=== PATIENT | female | born 1990 | race Caucasian/White ===

== ENCOUNTER 2018-03-15 15:23 | Outpatient (REF) | payer MEDICAID, SELFPAY ==
--- NOTE | 2018-03-15 14:30 | PAPFT_PTH ---
PATIENT: Brittany He LOC: [facility] U#:[id number] AGE/SX: 27/F ROOM: RE03/15/[address]: CARLA Dennis : 1990 BED: DIS: 03/15/2018 SPEC #: [id number] RECD: 03/15/18 17:43 STATUS: KALIN REQ #: [id number] ASHLI: 03/15/18 14:[address]: Cristiana Mason DEPT: [facility] Cytology RECD BY: Kiana Gutierres ENTERED: 03/15/18 17:44 SP TYPE: PAPFT YUKO DR: Tiago France MD Tissues: 1 - CX/ENDOCX FOR PAP SMEARS Procedures: PAP THIN PREP/UVM Screening Comments: [id number]
== END 2018-03-15 15:43 ==
LOC: LBN 15:23
PROVIDERS: PCP Family Medicine; Visit Provider Nurse Practitioner Family
DX: Z12.4 Encounter for screening for malignant neoplasm of cervix (principal)
CPT/HCPCS: 88142

== ENCOUNTER 2018-05-18 12:08 | Outpatient (REF) | payer MEDICAID, SELFPAY | END 2018-05-18 12:28 | LOC: NCHCN 12:08 | PROVIDERS: PCP Family Medicine; Visit Provider Family Medicine | DX: R30.0 Dysuria (principal) | CPT/HCPCS: 87077; 87086 ==

== ENCOUNTER 2018-05-19 21:43 | Emergency (ER) | payer MEDICAID, SELFPAY ==
[2018-05-19 21:51] VITALS: BP 148/70; PULSE 80; RESP 16; TEMP 36.7; O2SAT 98
--- NOTE | 2018-05-19 22:40 | ED.GENADUL_ITS ---
Discharge Plan Disposition Patient Disposition: HOME Condition: Good Discharge Details Chief Complaint: Abd Prob Clinical Impression: Pyelonephritis Primary Care Provider: Tiago France ED Provider: Jean Marie Moon Home Meds and New Rx's Prescriptions: New ciprofloxacin HCl 500 mg Tablet 500 mg PO BID Qty: 20 RF: 0 Continued fluticasone 50 mcg/actuation spray,suspension 2 spray NS DAILY PRN (Reason: allergy symptoms) Qty: 16 RF: 2 norgestimate-ethinyl estradiol [Tri-Sprintec (28)] 0.18/0.215/0.25 mg-35 mcg (28) tablet 1 tab PO DAILY Qty: 84 RF: 3 duloxetine 30 mg capsule,delayed release(DR/EC) 30 mg PO DAILY Qty: 30 RF: 2 Discontinued sulfamethoxazole-trimethoprim [Bactrim DS] 800-160 mg tablet 1 tab PO BID Qty: 6 RF: 0 Discharge Instructions Instructions: Kidney Infection (ED) Additional Instructions: Discontinue the Bactrim. Start taking ciprofloxacin. Use Tylenol or Motrin as needed for discomfort. Stay hydrated. Follow-up with primary care next week. Return to ED for worsening pain, vomiting, spiking fevers. Referrals: Tiago France. [Primary Care Provider] - Medical Decision Making Patient presenting with right lower quadrant and flank pain today. Being treated for UTI and urinary symptoms resolved. Is not febrile and looks well. She has a benign abdomen. She does have some mild right CVAT. She is describing colicky type pain. Concern for stone entertained. IV established and labs obtained. Toradol given for pain. CT scan ordered. test is negative. Clean catch urine x2 were contaminated. Ultimately straight cath was obtained. CT scan is negative. She has no evidence of hydronephrosis or calculi. Her appendix is normal. Adnexal organs appear normal. White count is normal. Kidney function is normal. Straight cath urine is positive for UTI despite treatment with Bactrim. Given the flank pain and mild CVAT presume pyelonephritis. We will go ahead and start her on ciprofloxacin as she is failed Bactrim. Urine culture should be available in the next couple of days. I did discuss side effects including Achilles tendon rupture with the patient. She will push fluids and use Tylenol or Motrin for pain. Follow-up with primary care next week. Return to ED for spiking fevers, worsening pain, vomiting. Lab Data Lab results reviewed: Yes I reviewed the patient's lab results. HPI General Mode of arrival: ambulatory . Date/Time Provider Initiated Documentation: 05/19/18 22:30 . Limitations to Documentation: no limitations . Information obtained by: patient . HPI Narrative: Patient presents to ED with right lower/mid quadrant pain. Patient seen by primary care this week for urinary tract symptoms including dysuria. She was placed on Bactrim for UTI. She at that time was not having back or flank pain or abdominal pain. She had no fevers or chills. She has had no nausea/vomiting. Her urinary symptoms have resolved. She has developed right lower quadrant/mid quadrant, right flank pain today. Describes it is sharp and colicky though not severe. Presents now for evaluation. Related Data Home Medications Medication Instructions Recorded Confirmed fluticasone 50 mcg/actuation nasal 2 spray NS DAILY PRN #16 gm 02/15/18 05/19/18 spray,suspension duloxetine 30 mg capsule,delayed 30 mg PO DAILY #30 cap 03/02/18 05/19/18 release norgestimate-ethinyl estradiol 1 tab PO DAILY #84 tab 03/15/18 05/19/18 0.18 mg/0.215mg/0.25mg-35 mcg(28)tablet ciprofloxacin HCl 500 mg PO BID #20 tab 05/20/18 Previous Rx's Medication Instructions Recorded fluticasone 50 mcg/actuation nasal 2 spray NS DAILY PRN #16 gm 02/15/18 spray,suspension duloxetine 30 mg capsule,delayed 30 mg PO DAILY #30 cap 03/02/18 release norgestimate-ethinyl estradiol 1 tab PO DAILY #84 tab 03/15/18 0.18 mg/0.215mg/0.25mg-35 mcg(28)tablet ciprofloxacin HCl 500 mg PO BID #20 tab 05/20/18 Allergies Allergy/AdvReac Type Severity Reaction Status Date / Time No Known Allergies Allergy Verified 03/15/18 13:54 General Stated Complaint: Abd Prob BUBBA: 3 Review of Systems Constitutional Denies chills, Denies fever(s), Denies headache(s), Denies malaise and Denies weakness Eyes Denies change in vision, Denies eye discharge, Denies irritation and Denies eye pain ENT Denies headache(s) and Denies neck pain Cardiovascular Denies chest pain, Denies pedal edema, Denies edema, Denies leg edema, Denies lightheadedness, Denies palpitations and Denies dyspnea Respiratory Denies cough and Denies dyspnea Gastrointestinal Reports abdominal pain, Denies diarrhea, Denies nausea and Denies vomiting Genitourinary Denies abnormal vaginal bleeding, Denies hematuria, Denies urinary frequency, Denies difficulty voiding, Denies dysuria, Denies pelvic pain, Reports flank pain, Denies urinary urgency and Denies vaginal discharge Musculoskeletal Denies back pain, Denies myalgias, Denies arthralgias, Denies joint swelling, Denies neck pain and Denies numbness Integumentary/Breasts Denies erythema and Denies rash Neurologic Denies confusion, Denies headache(s), Denies numbness and Denies weakness Psychiatric Denies confusion Endocrine Denies palpitations [facility] Medical History Depressive disorder (Chronic) Tobacco use disorder (Acute 05/02/14) Subarachnoid hemorrhage following injury (Acute 03/11/14) ETOH abuse (Acute 03/13/14) Contraception (Acute 01/19/17) Anxiety (Chronic 10/29/15) Cerebral hemorrhage secondary to trauma History of depression Family History Brother Essential hypertension Social History household members: significant other and other details: 5 current occupation: [employer] Smoking/Tobacco Use Status: Current every day how long ago did patient quit smoking: Light tobacco smoker alcohol intake: current alcohol intake frequency: holidays/special occasions only substance use type: does not use seatbelt use: always helmet use: Yes helmet use: always firearms in home: No History History 2 Para Hx # Term Pregnancies 1 Multiple births Hx # Pregnancies Ectopic pregnancies AB induced Hx Number of Living Children AB spontaneous Exam Const General: cooperative, comfortable and no acute distress Orientation: alert and oriented x3 HENMT Head: normocephalic and atraumatic Mouth: moist mucous membranes Eyes Conjunctivae: conjunctivae normal Pupils: PERRL EOM: EOM intact bilaterally Neck Neck: full ROM, no lymphadenopathy, trachea midline and supple Resp Effort & Inspection: normal respiratory effort Auscultation: clear to auscultation bilaterally Cardio Rate: regular rate Rhythm: regular rhythm Heart Sounds: S1 normal and S2 normal Pulses: normal peripheral pulses GI Inspection: non-distended Palpation: soft, not firm, no guarding and nontender Back/Spine/Pelvis Back: CVA tenderness (right) Skin General skin exam: no erythema Rashes: no rashes Trauma: no lacerations or abrasions Other: warm and dry Neuro General: alert, oriented x3, no focal motor deficits and CN's II-XI intact bilaterally Cognition: normal cognition Speech: speech normal Sensory Exam: no sensory deficits noted Extrem General: normal to inspection, full ROM and no clubbing, cyanosis or edema Psych Appearance: grossly normal Mental Status: mental status grossly normal Affect: normal affect Attitude: cooperative Course Vital Signs Temperature 98.1 F 05/19/18 21:51 Pulse 80 05/19/18 21:51 Respiratory Rate 16 05/19/18 21:51 Blood Pressure 148/70 H 05/19/18 21:51 Pulse Oximetry 98 05/19/18 21:51 Temperature 98.1 F 05/19/18 21:51 Temperature Source Skin 05/19/18 21:51 Pulse 80 05/19/18 21:51 Respiratory Rate 16 05/19/18 21:51 Respiratory Effort 05/19/18 22:14 Blood Pressure 148/70 H 05/19/18 21:51 Blood Pressure Position Sitting 05/19/18 21:51 Pulse Oximetry 98 05/19/18 21:51 Oxygen Delivery Method Room Air 05/19/18 21:51 Oxygen Flow Rate 0 05/19/18 21:51 Pain Level 10 05/19/18 21:51 Lab/Test Results Lab/Test Results: POC- Test(urine) Negative
[2018-05-19] MEDS: Ketorolac 30 MG/ML VIAL IVP (22:51)
[2018-05-19 22:53] LABS: Bilirubin Negative (Negative); Blood Trace-intact (Negative); Clarity Sl Cloudy; Glucose Negative (Negative); Ketones Negative (Negative); Leukocyte Esterase Trace (Negative); Nitrite Negative (Negative); Specific Gravity 1.025 (1.005-1.025)
[2018-05-19 22:57] LABS: Abs Immature Grans 0.01 k/cumm (0.0-0.09); Absolute Basophil Count 0.02 k/cumm (0.0-0.2); Absolute Eosinophil Count 0.05 k/cumm (0.0-0.7); Absolute Lymphocyte Count 2.49 k/cumm (1.2-3.4); Absolute Monocyte Count 0.73 k/cumm (0.11-0.7); Absolute Neutrophil Count 6.19 k/cumm (1.2-6.7); Basophils % 0.2; Eosinophils % 0.5; HCT 40.1 % (36.0-46.0); HGB 13.4 g/dL (12.0-15.5); Immature Grans % 0.1; Lymphocytes % 26.2; Mean Corp. HGB Concentration 33.4 g/dL (32.0-36.0); Mean Corpuscular Hemoglobin 30.7 pg (27.0-33.0); Mean Corpuscular Volume 91.8 fL (80-95); Mean Platelet Volume 11.5 fL (8.0-11.0); Monocytes % 7.7; Neutrophils % 65.3; Platelet Count 216 x1000/uL (130-400); RBC 4.37 m/cumm (4.00-5.20); White Blood Cell Count 9.49 k/cumm (4.4-10.8)
[2018-05-19 22:59] LABS: WBC 20-50 HPF (0-5)
[2018-05-19 23:00] LABS: Bacteria Moderate HPF (Negative); C & S Indicated? No/Sq. Contamination; Casts Negative LPF (Negative); Crystals Negative HPF (Negative); Epithelial Cells Many HPF (Negative); Mucus Negative (Negative)
[2018-05-19 23:01] LABS: Anion Gap 9.7 mmol/L (3-11); BUN 12 mg/dL (7-18); CO2 27.3 mmol/L (21.0-32.0); CREATININE 0.64 mg/dL (0.55-1.02); Calcium 8.7 mg/dL (8.5-10.1); Chloride 98 mmol/L (98-107); Glucose 91 mg/dL (70-100); Potassium 3.7 mmol/L (3.5-5.1); Sodium 135 mmol/L (136-145)
--- NOTE | 2018-05-19 23:50 | DI.CT_ITS ---
SYMPTOM/DIAGNOSIS: RIGHT FLANK PAIN. RENAL COLIC CT: The noncontrast enhanced examination was conducted according to the usual protocol. The lung bases are unremarkable. The liver is normal. There is no evidence of cholelithiasis or biliary dilatation. The pancreas and spleen are normal. The adrenals are normal. There is a nonobstructing left nephrolithiasis. The right kidney is entirely unremarkable. There is no evidence of right or left ureterolithiasis or ureterectasis. The images suggest no evidence of a renal mass on this noncontrast enhanced study. As noted above, no ureteral calculi are demonstrated There is no evidence of bowel obstruction or localized bowel abnormality or inflammatory change. Scattered feces is noted throughout the colon. Evaluation of the pelvis reveals a normal appendix in the right lower quadrant. The bladder is unremarkable. The uterus is unremarkable. There is no evidence of an adnexal mass. There is no free fluid in this patient's pelvis. There is no inguinal adenopathy. There is no pelvic adenopathy. The bowel loops within the pelvis are unremarkable. SUMMARY: A nonobstructing calculus is identified, it should be on the left kidney. There is no evidence of right or left upper tract obstruction. There are no ureteral calculi or evidence of ureterolithiasis. The appendix is normal.
--- NOTE | 2018-05-20 00:32 | DI.VRAD_ITS ---
EXAM: CT Abdomen and Pelvis Without Contrast EXAM DATE/TIME: 05/19/2018 10:42 PM CLINICAL HISTORY: 27 years old, female; Pain; Other: Ruq and r flank; Patient HX: PT has been on antibiotics for a urinary infection but now ruq and r flank pain TECHNIQUE: Axial computed tomography images of the abdomen and pelvis without contrast. All CT scans at this facility use at least one of these dose optimization techniques: automated exposure control; mA and/or kV adjustment per patient size (includes targeted exams where dose is matched to clinical indication); or iterative reconstruction. Coronal and sagittal reformatted images were created and reviewed. COMPARISON: OB US 1ST TRIMESTER TRANSABD*P 09/05/2014 6:47 PM FINDINGS: The lung bases are clear. The visualized bony structures are unremarkable. There is no liver mass. There is no intrahepatic biliary dilatation. No gallstones are seen within the gallbladder. The pancreas is unremarkable. The spleen is unremarkable. There is no adrenal mass. There is no hydronephrosis. There is a small calculus in the midpole of the left kidney not causing obstruction. No calculi are seen within the right kidney. There is no perinephric stranding. There is no renal mass. The ureters are normal in caliber. No calculi are seen along the course of the ureters. The aorta is normal in caliber. The IVC is normal in caliber. There is no retroperitoneal adenopathy. There is no mesenteric adenopathy. The stomach is unremarkable. The small bowel loops in the upper abdomen are nondistended with no bowel wall thickening. Feces is seen throughout the colon. There is no thickening of the wall of the ascending, transverse or descending colons. Within the pelvis: A normal appendix is seen within the right lower quadrant. The bladder is nondistended. The uterus is unremarkable. There are no adnexal masses. There is no free fluid within the pelvis. There is no inguinal adenopathy. There is no pelvic adenopathy. The bowel loops within the pelvis are unremarkable. IMPRESSION: 1. No hydronephrosis. No obstructing calculi on the right. Please note the lack of IV contrast limits evaluation of the renal parenchyma for pyelonephritis. 2. Normal appendix. Dictated and Authenticated by: Mazin Ventura MD. Ordering:DEUCE Aj MD
[2018-05-20 00:50] LABS: Bilirubin Negative (Negative); Blood Trace-lysed (Negative); Clarity Sl Cloudy; Glucose Negative (Negative); Ketones Negative (Negative); Leukocyte Esterase Small (Negative); Nitrite Negative (Negative); Specific Gravity 1.015 (1.005-1.025); Urobilinogen 0.2 EU/dL (Up TO 0.2); pH 6.5 (5-8)
[2018-05-20 00:56] LABS: WBC 20-50 HPF (0-5)
[2018-05-20 00:57] LABS: Bacteria Few HPF (Negative); C & S Indicated? No/Sq. Contamination; Casts Negative LPF (Negative); Crystals Negative HPF (Negative); Epithelial Cells Many HPF (Negative); Mucus Negative (Negative); RBC 0-2 (0-2)
[2018-05-20 02:01] LABS: Bilirubin Negative (Negative); Blood Trace-lysed (Negative); Clarity Sl Cloudy; Glucose Negative (Negative); Ketones Negative (Negative); Leukocyte Esterase Small (Negative); Nitrite Negative (Negative); Specific Gravity 1.025 (1.005-1.025)
[2018-05-20 02:09] LABS: Bacteria Few HPF (Negative); C & S Indicated? Yes; Casts Negative LPF (Negative); Crystals Negative HPF (Negative); Epithelial Cells Few HPF (Negative); Mucus Moderate (Negative); RBC 0-2 (0-2); WBC 20-50 HPF (0-5)
[2018-05-20] MEDS: Ciprofloxacin 500 MG TAB PO (02:37)
[2018-05-20 02:43] VITALS: BP 130/73; PULSE 64; RESP 16; O2SAT 99
== END 2018-05-20 02:43 | disposition home or self-care (01) ==
PROVIDERS: Emergency Provider Emergency Medicine; PCP Family Medicine
DX: N10 Acute pyelonephritis (principal)
CPT/HCPCS: 36415; 51701; 80048; 81025; 96374; 99284; 74176; 81003; 81015; 85025; 87086; 99285; J1885

== ENCOUNTER 2019-12-19 11:51 | Outpatient (REF) | payer MEDICAID, SELFPAY ==
--- NOTE | 2019-12-19 11:30 | PAPFT_PTH ---
PATIENT: Brittany He LOC: [facility] U#:[id number] AGE/SX: 29/F ROOM: RE12/19/[address]: CARLA Dennis : 1990 BED: DIS: 12/19/2019 SPEC #: [id number] RECD: 12/19/19 12:40 STATUS: KALIN REQ #: [id number] ASHLI: 12/19/19 11:[address]: Cristiana Mason DEPT: [facility] Cytology RECD BY: Kiana Gutierres ENTERED: 12/19/19 12:40 SP TYPE: PAPFT OTHR DR: Tiago France MD Tissues: 1 - CX/ENDOCX FOR PAP SMEARS Procedures: PAP THIN PREP/UVM Screening HPV DNA PROBE Comments: [id number]
[2019-12-21 18:35] LABS: Chlamydia Result Negative (Negative); GC Result Negative (Negative)
== END 2019-12-19 12:11 ==
LOC: LBN 11:51
PROVIDERS: PCP Family Medicine; Visit Provider Nurse Practitioner Family
DX: Z11.3 Encounter for screening for infections with a predominantly sexual mode of transmission (principal); Z12.4 Encounter for screening for malignant neoplasm of cervix; Z11.59 Encounter for screening for other viral diseases
CPT/HCPCS: 87491; 87591; 88142; 87624

== ENCOUNTER 2020-03-05 12:19 | Outpatient (CLI) | payer MEDICAID, SELFPAY ==
--- NOTE | 2020-03-05 13:16 | DI.RAD_ITS ---
EXAM: XR RIBS RT W PA LAT CHEST CLINICAL HISTORY: right rib pain r/t fall R07.81 PLEURODYNIA TECHNIQUE: 2D digital imaging was performed. COMPARISON: CR CHEST 2 VIEWS PA,LAT from 03/11/2014 FINDINGS: The cardiac and mediastinal contours have a normal appearance. The lungs are well inflated and clear . No infiltrate, effusion or pneumothorax is seen. No spine or rib fracture is identified. IMPRESSION: Negative chest x-ray.
== END 2020-03-05 12:39 ==
PROVIDERS: PCP Family Medicine; Visit Provider Nurse Practitioner Family
DX: R07.81 Pleurodynia (principal)
CPT/HCPCS: 71046; 71100

== ENCOUNTER 2020-09-29 10:51 | Emergency (ER) | payer MEDICAID, SELFPAY ==
[2020-09-29 10:58] VITALS: BP 138/81; PULSE 94; RESP 18; TEMP 37.3; O2SAT 97
--- NOTE | 2020-09-29 11:14 | W.ED.GENAD ---
Discharge Plan Disposition Patient Disposition: HOME Condition: Good Discharge Details Clinical Impression: Acute pain of left knee Primary Care Provider: Tiago France ED Provider: Kiana Garcia Home Meds and New Rx's Prescriptions: No Action fluticasone propionate 50 mcg/actuation spray,suspension 2 spray NS DAILY PRN (Reason: allergy symptoms) Qty: 16 RF: 2 norgestimate-ethinyl estradiol [Tri-Sprintec (28)] 0.18/0.215/0.25 mg-35 mcg (28) tablet 1 tab PO DAILY Qty: 84 RF: 3 Discharge Instructions Instructions: Knee Pain (ED) Additional Instructions: Please follow-up with the primary care physician and orthopedics with persistent pain You may need a repeat x-ray in 1 week should you have persistent or worsening pain Weightbearing as tolerated You may use a [id number] knee brace as needed for support Ibuprofen and Tylenol for pain control, 600 mg of ibuprofen, you may take 650 mg of Tylenol, do not take more than 4 g of Tylenol in a day You may take ibuprofen 600 mg every 8 hours with food You may also use [id number] Voltaren gel as needed for discomfort Stand Alone Forms: Work Release Medical Decision Making Patient requested crutches, these are supplied An [id number] knee brace recommended Orthopedic or PCP recheck in 1 week recommended Ibuprofen and Tylenol for pain control Return precautions discussed and patient understanding Ambulatory with steady gait at time of discharge home Differential Diagnosis Differential Diagnosis: Fracture, strain, contusion, abrasion HPI General Mode of arrival: ambulatory. Date/Time Provider Initiated Documentation: 09/29/20 11:09. Limitations to Documentation: no limitations. Information obtained by: patient. HPI Narrative: This 29-year-old female presents with report of left knee pain. She states that she lost her footing and fell down 4 steps on the porch. She landed on her foot but twisted her knee when she did so. She denies any additional injuries. She denies any head injury, abdominal pain, back pain, strength or sensation changes. The pain is exacerbated predominantly with flexion and walking. She denies any chance of . Related Data Home Medications Medication Instructions Recorded Confirmed fluticasone propionate 50 2 spray NS DAILY PRN #16 gm 18 09/29/20 mcg/actuation nasal spray,suspension norgestimate-ethinyl estradiol 1 tab PO DAILY #84 tab 12/19/19 09/29/20 0.18 mg/0.215mg/0.25mg-35 mcg(28)tablet Previous Rx's Medication Instructions Recorded fluticasone propionate 50 2 spray NS DAILY PRN #16 gm 02/15/18 mcg/actuation nasal spray,suspension norgestimate-ethinyl estradiol 1 tab PO DAILY #84 tab 12/19/19 0.18 mg/0.215mg/0.25mg-35 mcg(28)tablet Allergies Allergy/AdvReac Type Severity Reaction Status Date / Time No Known Allergies Allergy Verified 09/29/20 11:01 General Stated Complaint: Orthopedic BUBBA: 4 Review of Systems Narrative: Review of systems negative x7 aside from indicated in HPI [facility] Medical History (Updated 09/29/20 @ 11:28 by DAVID Napoles) Anxiety (10/29/15) 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 Contraception (01/19/17) Depressive disorder ETOH abuse (03/13/14) History of depression Subarachnoid hemorrhage following injury (03/11/14) Tobacco use disorder (05/02/14) Family History Brother Essential hypertension Social History Smoking/Tobacco Use Status: Current-Occasional Tobacco Type: cigarettes Smoking risk assessment performed?: Yes Alcohol Intake: current Alcohol Intake frequency: holidays/special occasions only Drug use: Never Substance use type: does not use Household members: significant other and other Details: 5 current occupation: [employer] What type of physical activity do you participate in: none Seatbelt use: always Helmet use: Yes Helmet use: always Firearms in home: No Do you feel safe at home: Yes Do you feel safe in your relationship?: Yes History History 2 Para Hx # Term Pregnancies 1 Multiple births Hx # Pregnancies Ectopic pregnancies AB induced Hx Number of Living Children AB spontaneous Exam Const General: cooperative and comfortable HENMT Other: No visible sign of trauma Neck Other: No midline tenderness Extrem Left lower extremity: knee Other: No joint laxity, tenderness laterally, no overlying erythema pain with 90 degrees flexion Distal pulses intact Course Vital Signs Vital signs: Vital Signs Temperature 37.3 C 09/29/20 10:58 Pulse 94 H 09/29/20 10:58 Respiratory Rate 18 09/29/20 10:58 Blood Pressure 138/81 09/29/20 10:58 Pulse Oximetry 97 09/29/20 10:58 Temperature 37.3 C 09/29/20 10:58 Temperature Source Oral 09/29/20 10:58 Pulse 94 H 09/29/20 10:58 Respiratory Rate 18 09/29/20 10:58 Respiratory Effort Non-Labored 09/29/20 11:02 Blood Pressure 138/81 09/29/20 10:58 Blood Pressure Position Sitting 09/29/20 10:58 Pulse Oximetry 97 09/29/20 10:58 Oxygen Delivery Method Room Air 09/29/20 10:58 Oxygen Flow Rate 0 09/29/20 10:58 Pain Level 10 09/29/20 10:58
--- NOTE | 2020-09-29 12:00 | DI.RAD_ITS ---
Exam(s) XR KNEE LT 3V AP,LAT,JYOTI EXAM: XR KNEE LT 3V AP,LAT,JYOTI CLINICAL HISTORY: . TECHNIQUE: 2D digital imaging was performed. COMPARISON: No exams were available for comparison FINDINGS: There is no evidence of fracture or joint effusion. Bone density normal. No osseous lesions. No os teophytes. No degenerative changes. IMPRESSION: No significant radiograph findings in the left knee. DATA REPOSITORY: RADIATION DOSE DELIVERED:
[2020-09-29 12:01] VITALS: BP 139/94; PULSE 91; RESP 16; TEMP 36.6; O2SAT 97
--- NOTE | 2020-09-29 12:44 | DI.VRAD_ITS ---
PROCEDURE INFORMATION: Exam: XR Left Knee Exam date and time: 09/29/2020 11:15 AM Age: 29 years old Clinical indication: Pain; Other: Left knee twisting injury; Patient HX: Fall TECHNIQUE: Imaging protocol: XR Left knee. Views: 3 views. COMPARISON: No relevant prior studies available. FINDINGS: Bones/joints: Osseous structures of the knee normal. No fracture. No joint effusion. Soft tissues unremarkable. Soft tissues: See Bones/joints finding. IMPRESSION: Normal knee. Dictated and Authenticated by: Brady Aguilar MD. Ordering:CLAYTON Bruno MD
== END 2020-09-29 13:10 | disposition home or self-care (01) ==
PROVIDERS: Emergency Provider Physician Assistant; PCP Family Medicine
DX: S89.82XA Other specified injuries of left lower leg, initial encounter (principal); W18.43XA Slipping, tripping and stumbling without falling due to stepping from one level to another, initial encounter
CPT/HCPCS: 73562; 81025; 99283; 99282

== ENCOUNTER 2021-03-07 10:49 | Outpatient (REF) | payer MEDICAID, SELFPAY ==
[2021-03-10 15:23] LABS: Chlamydia Result Negative (Negative); GC Result Negative (Negative)
== END 2021-03-07 10:50 | disposition home or self-care (01) ==
LOC: LBN 10:49
PROVIDERS: PCP Family Medicine; Visit Provider Nurse Practitioner Family
DX: Z11.3 Encounter for screening for infections with a predominantly sexual mode of transmission (principal)
CPT/HCPCS: 87491; 87591

== ENCOUNTER 2021-05-14 08:35 | Emergency (ER) | payer MEDICAID, SELFPAY ==
--- NOTE | 2021-05-14 09:15 | DI.US_ITS ---
Exam(s) US ABDOMEN LIMITED EXAM: US ABDOMEN LIMITED CLINICAL HISTORY: epigastric and Ruq pain TECHNIQUE: Ultrasound abdomen performed using standard protocol. COMPARISON: CT CT renal colic wo from 05/19/[address] renal colic wo from 05/19/2018 FINDINGS: PANCREAS: Normal where visualized. LIVER: Normal. Hepatopedal flow in the Portal Vein. The liver measures 12.8 cm long. GALLBLADDER: No evidence of cholelithiasis. No evidence of wall thickening. No pericholecystic fluid identified. BILIARY SYSTEM: Common bile duct measures < 7 mm. No intrahepatic biliary ductal dilation. RAMÍREZ'S SIGN: Negative. RIGHT KIDNEY: Kidney is normal in size. No evidence of renal calculi. No evidence of hydronephrosis. No renal mass or cyst identified. ASCITES: None seen. IMPRESSION: Normal sonographic appearance of the upper abdomen. DATA REPOSITORY:
--- NOTE | 2021-05-14 09:55 | DI.RAD_ITS ---
Exam(s) XR CHEST 2V PA LATERAL EXAM: XR CHEST 2V PA LATERAL CLINICAL HISTORY: ruq and luq pain TECHNIQUE: 2D digital imaging was performed of the chest. Two images were obtained. PA and lateral views were obtained. COMPARISON: CR XR RIBS RT W PA LAT CHEST from 03/05/2020 CR XR RIBS RT W PA LAT CHEST from 03/05/2020 FINDINGS: MEDIASTINUM: Normal. HEART: Normal. PULMONARY VASCULATURE: Normal. LUNGS: Clear. PLEURAL SPACE: No pleural effusion or pneumothorax. BONE:Within normal limits for the patient's age. OTHER FINDINGS:Normal. IMPRESSION: No acute pulmonary findings. DATA REPOSITORY: RADIATION DOSE DELIVERED:
[2021-05-14 10:00] VITALS: BP 121/77; PULSE 75; TEMP 36.1; O2SAT 98
[2021-05-14 10:05] LABS: Bilirubin Negative (Negative); Blood Negative (Negative); Clarity Clear (Clear); Glucose Negative (Negative); Ketones Negative (Negative); Leukocyte Esterase Moderate (Negative); Nitrite Negative (Negative)
[2021-05-14 10:09] VITALS: PULSE 71; RESP 14; TEMP 36.3; O2SAT 97
[2021-05-14 10:14] LABS: Bacteria Few HPF (Negative); C & S Indicated? No/Sq. Contamination; Casts Negative LPF (Negative); Crystals Negative HPF (Negative); Epithelial Cells Moderate HPF (Negative); Mucus Trace (Negative); RBC Negative HPF (0-2)
[2021-05-14] MEDS: ACETAMINOPHEN 1,000 MG/100 ML BTL 400 MG IVPB (10:20)
[2021-05-14 10:30] LABS: HGB 13.7 g/dL (11.2-15.7); MCH 30.1 pg (27.0-33.0); MCHC 33.4 % (32.0-36.0); MCV 90.1 fL (80-95); MPV 11.7 fL (8.0-11.0); Nucleated RBC 0 %; Platelet Count 111 10^3/uL (130-400); RBC 4.55 10^6/uL (3.93-5.22); RDW 12.3 % (11.7-14.6); RDW-SD 41.1 fL; WBC 5.97 10^3/uL (4.4-10.8)
[2021-05-14] MEDS: Normal Saline 1,000 ML 1000 ML IV (10:34)
[2021-05-14 10:43] LABS: ALT 29 U/L (14-59); AST 34 U/L (15-37); Albumin 3.5 g/dL (3.4-5.0); Alkaline Phosphatase 92 U/L (46-116); Anion Gap 8.2 mmol/L (3-11); BUN 6 mg/dL (7-18); Bilirubin, Total 0.3 mg/dL (0.2-1.0); CO2 27.8 mmol/L (21.0-32.0); CREATININE 0.5 mg/dL (0.55-1.02); Calcium 8.4 mg/dL (8.5-10.1); Chloride 100 mmol/L (98-107); Glucose 95 mg/dL (74-106); Lipase 56 U/L (73-393); Potassium 3.9 mmol/L (3.5-5.1); Sodium 136 mmol/L (136-145); Total Protein 7.7 g/dL (6.4-8.2)
[2021-05-14 10:55] LABS: Absolute Eosinophil Count 0.06 10^3/uL (0.0-0.7); Absolute Lymphocyte Count 3.22 10^3/uL (1.2-3.4); Absolute Monocyte Count 0.36 10^3/uL (0.1-0.8); Absolute Neutrophil Count 2.33 10^3/uL (1.2-6.7); Atypical Lymphocytes % 15; Bands % 2; Diff Comment Manual Differential; RBC Morphology Normal
[2021-05-14] MEDS: FAMOTIDINE 20 MG/50 ML BAG 200 MG IVPB (11:10)
--- NOTE | 2021-05-14 11:26 | ED.GENADUL_ITS ---
Discharge Plan Disposition Patient Disposition: HOME Condition: Stable Discharge Details Clinical Impression: Gastritis Primary Care Provider: Tiago France ED Provider: Kiana Garcia Home Meds and New Rx's Prescriptions: New sucralfate [Carafate] 1 gram tablet 1 g PO BID Qty: 60 RF: 0 famotidine [Pepcid] 20 mg tablet 20 mg PO DAILY Qty: 14 RF: 0 omeprazole magnesium [Prilosec OTC] 20 mg tablet,delayed release (DR/EC) 20 mg PO DAILY Qty: 30 RF: 0 ondansetron HCl [Zofran] 4 mg tablet 4 mg PO Q8H PRNQty: 7 RF: 0 Continued fluticasone propionate 50 mcg/actuation spray,suspension 2 spray NS DAILY PRN (Reason: allergy symptoms) Qty: 16 RF: 2 norgestimate-ethinyl estradiol [Tri-Sprintec (28)] 0.18/0.215/0.25 mg-35 mcg (28) tablet 1 tab PO DAILY Qty: 84 RF: 3 Discharge Instructions Instructions: Gastritis (ED) Additional Instructions: Carafate,, and Prilosec daily Zofran as needed for nausea and vomiting Follow-up with your doctor within the next week for reassessment and return earlier should you have new or worsening complaints Recommend low-fat and residue diet, stay away from fatty food, coffee, tomato, oranges, and anything that irritates your stomach Stand Alone Forms: Work Release Referrals: Tiago France MD [Primary Care Provider] - Medical Decision Making Dog lab including test negative, ultrasound does not show acute abnormality, chest x-ray without acute abnormality Patient had no improvement with IV Tylenol, however after GI cocktail and Pepcid she had marked improvement in her symptoms She was initiated on Pepcid, Carafate, and Prilosec for possible gastritis She will need close outpatient follow-up with her primary care physician within the next 2 to 3 days Return precautions discussed and patient expressed understanding No indication for CT imaging based on clinical exam at this time We discussed outpatient endoscopy, however medication trial is appropriate at this time Medical Records Medical records reviewed: Yes I reviewed the patient's medical records. Lab Data Lab results reviewed: Yes I reviewed the patient's lab results. HPI General Mode of arrival: ambulatory . Date/Time Provider Initiated Documentation: 05/14/21 09:11 . Limitations to Documentation: no limitations . Information obtained by: patient . HPI Narrative: This 30-year-old female presents with epigastric pain. She states that she started with nausea and vomiting followed by abdominal pain on Wednesday. She denies history of similar symptoms in the past. She denies any chest pain or shortness of breath. Sexually active and monogamous, denies any vaginal discharge.she denies any dizziness or weakness. She describes the pain as a burning sensation. She denies chance of . She denies any urinary complaints. She denies any blood in vomitus or diarrhea. Related Data Home Medications Medication Instructions Recorded Confirmed fluticasone propionate 50 2 spray NS DAILY PRN #16 gm 02/15/18 05/14/21 mcg/actuation nasal spray,suspension norgestimate-ethinyl estradiol 1 tab PO DAILY #84 tab 03/07/21 05/14/21 0.18 mg/0.215mg/0.25mg-35 mcg(28)tablet famotidine [Pepcid] 20 mg PO DAILY #14 tab 05/14/21 omeprazole magnesium [Prilosec OTC] 20 mg PO DAILY #30 tab 05/14/21 ondansetron HCl [Zofran] 4 mg PO Q8H PRN #7 tab 05/14/21 sucralfate [Carafate] 1 g PO BID #60 tab 05/14/21 Previous Rx's Medication Instructions Recorded fluticasone propionate 50 2 spray NS DAILY PRN #16 gm 02/15/18 mcg/actuation nasal spray,suspension norgestimate-ethinyl estradiol 1 tab PO DAILY #84 tab 03/07/21 0.18 mg/0.215mg/0.25mg-35 mcg(28)tablet famotidine [Pepcid] 20 mg PO DAILY #14 tab 05/14/21 omeprazole magnesium [Prilosec OTC] 20 mg PO DAILY #30 tab 05/14/21 ondansetron HCl [Zofran] 4 mg PO Q8H PRN #7 tab 05/14/21 sucralfate [Carafate] 1 g PO BID #60 tab 05/14/21 Allergies Allergy/AdvReac Type Severity Reaction Status Date / Time No Known Allergies Allergy Verified 05/14/21 10:12 General Stated Complaint: Abd Prob BUBBA: 3 Review of Systems All systems reviewed & are unremarkable except as noted in HPI and below PFSH All Active Problems (Updated 05/14/21 @ 11:28 by DAVID Napoles) Gastritis (Acute) Acute pain of left knee (Acute) Pyelonephritis (Acute ~04/2018) Depressive disorder (Chronic) Tobacco use disorder (Acute 05/02/14) Subarachnoid hemorrhage following injury (Acute 03/11/14) ETOH abuse (Acute 03/13/14) Contraception (Acute 01/19/17) Anxiety (Chronic 10/29/15) Medical History (Updated 05/14/21 @ 11:28 by DAVID Napoles) 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 History of depression Family History Brother Essential hypertension Social History (Updated 10/28/20 @ 14:55 by Jeni Strong) Smoking/Tobacco Use Status: Current-Occasional Tobacco Type: cigarettes Smoking risk assessment performed?: Yes Alcohol Intake: current Alcohol Intake frequency: holidays/special occasions only Drug use: Never Substance use type: does not use Household members: children Housing: apartment current occupation: [employer] Pets and animals: Yes Pets and animals: cat(s) Sexually active: Yes What is your relationship status?: How often do you talk on the phone with friends or family?: three or more times per week Do you belong to any clubs or organized social groups?: no Panel score (0-1 are the most socially isolated patients): 1 What type of physical activity do you participate in: walking Duration: 30-45 minutes/day Frequency: 3-4 times per week Seatbelt use: always Helmet use: Yes Helmet use: always Firearms in home: No Do you feel safe at home: Yes Do you feel safe in your relationship?: Yes History History 2 Para Hx # Term Pregnancies 1 Multiple births Hx # Pregnancies Ectopic pregnancies AB induced Hx Number of Living Children AB spontaneous Exam Const General: cooperative, comfortable and no acute distress HENMT Other: Moist mucous membranes Eyes Sclera: sclerae normal Resp Effort & Inspection: normal respiratory effort Cardio Rate: regular rate Rhythm: regular rhythm GI Inspection: normal to inspection Other: Tenderness to palpation of the epigastrium, no CVA tenderness, no rebound or guarding Skin General skin exam: no rashes or lesions noted Neuro General: patient alert and patient oriented x3 Extrem Other: Distal pulses intact, no peripheral edema Psych Appearance: grossly normal Course Vital Signs Vital signs: Vital Signs Temperature 36.1 C L 05/14/21 10:00 Pulse 75 05/14/21 10:00 Blood Pressure 121/77 05/14/21 10:00 Pulse Oximetry 98 05/14/21 10:00 Temperature 36.3 C L 05/14/21 10:09 Temperature Source Skin 05/14/21 10:09 Pulse 71 05/14/21 10:09 Respiratory Rate 14 05/14/21 10:09 Respiratory Effort Non-Labored 05/14/21 10:13 Blood Pressure 121/77 05/14/21 10:00 Blood Pressure Position Sitting 05/14/21 10:09 Pulse Oximetry 97 05/14/21 10:09 Oxygen Delivery Method Room Air 05/14/21 10:09 Oxygen Flow Rate 0 05/14/21 10:09 Pain Level 10 05/14/21 10:09 Lab/Test Results Lab/Test Results: Laboratory Tests Range/Units 05/14/21 05/14/21 05/14/21 09:25 10:20 10:20 WBC (4.4-10.8) 10^3/uL 5.97 RBC (3.93-5.22) 10^6/uL 4.55 Hgb (11.2-15.7) g/dL 13.7 Hct (36.0-46.0) % 41.0 MCV (80-95) fL 90.1 MCH (27.0-33.0) pg 30.1 MCHC (32.0-36.0) % 33.4 RDW (11.7-14.6) % 12.3 Plt Count (130-400) 10^3/uL 111 L MPV (8.0-11.0) fL 11.7 H Immature Gran % 0.0 Neutrophils % 37.0 Band Neutrophils % 2 Lymphocytes % 39.0 Atypical Lymphs % 15 Monocytes % 6.0 Eosinophils % 1.0 Basophils % 0.0 Nucleated RBC % % 0 Absolute Neutrophils (1.2-6.7) 10^3/uL 2.33 Absolute Lymphocytes (1.2-3.4) 10^3/uL 3.22 Absolute Monocytes (0.1-0.8) 10^3/uL 0.36 Absolute Eosinophils (0.0-0.7) 10^3/uL 0.06 Absolute Basophils (0.0-0.2) 10^3/uL 0.00 RBC Morphology Normal Sodium (136-145) mmol/L 136 Potassium (3.5-5.1) mmol/L 3.9 Chloride (98-107) mmol/L 100 Carbon Dioxide (21.0-32.0) mmol/L 27.8 Anion Gap (3-11) mmol/L 8.2 BUN (7-18) mg/dL 6 L Creatinine (0.55-1.02) mg/dL 0.5 L Estimated GFR/1.73 m2 (mL/min/1.73m2) >= 60.00 Glucose (74-106) mg/dL 95 Calcium (8.5-10.1) mg/dL 8.4 L Total Bilirubin (0.2-1.0) mg/dL 0.3 AST (15-37) U/L 34 ALT (14-59) U/L 29 Alkaline Phosphatase (46-116) U/L 92 Total Protein (6.4-8.2) g/dL 7.7 Albumin (3.4-5.0) g/dL 3.5 Lipase (73-393) U/L 56 Urine Color (Yellow) Yellow Urine Clarity (Clear) Clear Urine pH (5-8) 7.0 Ur Specific [place] (1.005-1.025) 1.020 Urine Protein (Negative) mg/dL Negative Urine Ketones (Negative) mg/dL Negative Urine Blood (Negative) Negative Urine Nitrite (Negative) Negative Urine Bilirubin (Negative) Negative Urine Urobilinogen (Up TO 0.2) EU/dL 1.0 H Ur Leukocyte Esterase (Negative) Moderate H Urine RBC (0-2) HPF Negative Urine WBC (0-5) HPF 5-10 Ur Epithelial Cells (Negative) HPF Moderate Urine Crystals (Negative) HPF Negative Urine Bacteria (Negative) HPF Few Urine Casts (Negative) LPF Negative Urine Mucus (Negative) Trace Ur Culture Indicated? No/Sq. Contamination Urine Glucose (Negative) mg/dL Negative POC- Test(urine) Negative PAWSS Have you Been Recently Intoxicated or Drunk Within the Last 30 days?: No Have you Ever Experienced Previous Episodes of Alcohol Withdrawal?: No Have you ever Experienced Withdrawal Seizures?: No Have you ever Experienced Delirium Tremens(DT)s?: No Have you ever undergone Alcohol Rehabilitation Treatment (i.e, inpt ot outpatient treatment programs)?: No Have you ever Experienced Blackouts?: No Have you ever Combined Alcohol with other Downers within the last 90 days?: No Have you ever Combined Alcohol with any other Substance of Abuse during the last 90 days?: No Positive Blood Alcohol level on Presentation? [PCS.BAL]: No Evidence of Increased Autonomic Activity (i.e. HR>120, tremor, sweating, agitation, nausea)?: No Result: 0
== END 2021-05-14 11:37 | disposition home or self-care (01) ==
PROVIDERS: Emergency Provider Physician Assistant; PCP Family Medicine
DX: K29.00 Acute gastritis without bleeding (principal); R11.2 Nausea with vomiting, unspecified; R10.13 Epigastric pain
CPT/HCPCS: 36415; 80053; 81025; 83690; 96361; 96365; 96367; 99284; 71046; 76705; 81003; 81015; 85025; J0131

== ENCOUNTER 2021-09-15 12:20 | Emergency (ER) | payer MEDICAID, SELFPAY ==
[2021-09-15 12:38] VITALS: BP 128/83; PULSE 69; RESP 16; TEMP 36.8; O2SAT 100
--- NOTE | 2021-09-15 12:52 | ED.GENADUL_ITS ---
Discharge Plan Disposition Patient Disposition: HOME Condition: Stable Discharge Details Clinical Impression: Laceration Primary Care Provider: Tiago France ED Provider: Rome Meza Home Meds and New Rx's Prescriptions: Continued fluticasone propionate 50 mcg/actuation spray,suspension 2 spray NS DAILY PRN (Reason: allergy symptoms) Qty: 16 2RF omeprazole magnesium [Prilosec OTC] 20 mg tablet,delayed release (DR/EC) 20 mg PO DAILY PRN0RF norgestimate-ethinyl estradiol [Tri-Sprintec (28)] 0.18/0.215/0.25 mg-35 mcg (28) tablet See Rx Instructions .ROUTE .COMPLEX Qty: 84 1RF Dose Instruction: TAKE 1 TABLET BY MOUTH DAILY Rx Instructions: TAKE 1 TABLET BY MOUTH DAILY Discharge Instructions Instructions: Laceration (ED) Additional Instructions: follow up in 7-10 days for evaluation for suture removal and sooner if you have spreading redness, severe pain or yellow/white discharge from the wound Medical Decision Making 30 yo female was at work cutting food with a knife when she cut her left index finger. She denies falling or loc. HAs a 2cm lac on the radial surface of the proximal index finger that runs vertically. Has intact sensation, full rom and normal cap refill, and the woud does not cross a joint line. Laceration is deep enough that it will require sutures. wound closed without incident or complications, she will return in 7-10 days for suture removal Differential Diagnosis Differential Diagnosis: laceration, abrasion HPI General Mode of arrival: ambulatory . Date/Time Provider Initiated Documentation: 09/15/21 12:29 . Limitations to Documentation: no limitations . Information obtained by: patient . History of Present Illness 30 year old F presents to the emergency department with the chief complaint of finger laceration, described as mild, Patient started experiencing this hour(s) (1) and it has been constant. improves with No relieving factors improve symptom(s), No exacerbating factors reported . Patient notes no other symptoms.. Patient did receive the following treatments prior to arrival, none Related Data Home Medications Medication Instructions Recorded Confirmed fluticasone propionate 50 2 spray NS DAILY PRN #16 gm 02/15/18 09/15/21 mcg/actuation nasal spray,suspension omeprazole magnesium 20 mg 20 mg PO DAILY PRN tab 05/20/21 09/15/21 tablet,delayed release (Prilosec OTC) norgestimate-ethinyl estradiol See Rx Instructions .ROUTE 09/09/21 09/15/21 0.18 mg/0.215mg/0.25mg-35 .COMPLEX #84 tab mcg(28)tablet (Tri-Sprintec (28)) Previous Rx's Medication Instructions Recorded fluticasone propionate 50 2 spray NS DAILY PRN #16 gm 02/15/18 mcg/actuation nasal spray,suspension norgestimate-ethinyl estradiol See Rx Instructions .ROUTE 09/09/21 0.18 mg/0.215mg/0.25mg-35 .COMPLEX #84 tab mcg(28)tablet (Tri-Sprintec (28)) Allergies Allergy/AdvReac Type Severity Reaction Status Date / Time No Known Allergies Allergy Verified 09/15/21 12:41 General Stated Complaint: Laceration BUBBA: 4 Review of Systems All systems reviewed & are unremarkable except as noted in HPI and below Constitutional Constitutional: Denies chills, Denies fever(s) and Denies weakness Cardiovascular Cardiovascular: Denies chest pain and Denies dyspnea Respiratory Respiratory: Denies dyspnea Gastrointestinal Gastrointestinal: Denies abdominal pain and Denies vomiting Genitourinary Genitourinary: Denies dysuria Musculoskeletal Musculoskeletal: Denies joint swelling Integumentary/Breasts Skin/Breast: Denies rash Neurologic Neurologic: Denies weakness PFSH All Active Problems (Updated 09/15/21 @ 13:21 by Rome Meza MD) Laceration (Acute) Acute pain of left knee (Acute) Pyelonephritis (Acute ~04/2018) Depressive disorder (Chronic) Tobacco use disorder (Acute 05/02/14) Subarachnoid hemorrhage following injury (Acute 03/11/14) ETOH abuse (Acute 03/13/14) Contraception (Acute 01/19/17) Anxiety (Chronic 10/29/15) Medical History (Updated 09/15/21 @ 13:21 by Rome Meza MD) 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 History of depression Family History Brother Essential hypertension Social History (Updated 10/28/20 @ 14:55 by Jeni Strong) Smoking/Tobacco Use Status: Current-Occasional Tobacco Type: cigarettes Smoking risk assessment performed?: Yes Alcohol Intake: current Alcohol Intake frequency: holidays/special occasions only Drug use: Never Substance use type: does not use Household members: children Housing: apartment current occupation: [employer] Pets and animals: Yes Pets and animals: cat(s) Sexually active: Yes What is your relationship status?: How often do you talk on the phone with friends or family?: three or more times per week Do you belong to any clubs or organized social groups?: no Panel score (0-1 are the most socially isolated patients): 1 What type of physical activity do you participate in: walking Duration: 30-45 minutes/day Frequency: 3-4 times per week Seatbelt use: always Helmet use: Yes Helmet use: always Firearms in home: No Do you feel safe at home: Yes Do you feel safe in your relationship?: Yes History History 2 Para Hx # Term Pregnancies 1 Multiple births Hx # Pregnancies Ectopic pregnancies AB induced Hx Number of Living Children AB spontaneous Exam Const General: no acute distress Orientation: alert HENMT Head: normal to inspection Ears: external ears normal General nose exam: external nose normal Mouth: moist mucous membranes Eyes General: appearance normal, both eyes and all related structures Neck Neck: normal visual inspection Resp Effort & Inspection: normal respiratory effort and able to speak in complete sentences Cardio Rate: regular rate Skin General skin exam: no rashes or lesions noted Neuro General: patient alert and patient oriented x3 Extrem General: full ROM and capillary refill normal Psych Mental Status: mental status grossly normal Course Vital Signs Vital signs: Vital Signs Temperature 36.8 C 09/15/21 12:38 Pulse 69 09/15/21 12:38 Respiratory Rate 16 09/15/21 12:38 Blood Pressure 128/83 09/15/21 12:38 Pulse Oximetry 100 09/15/21 12:38 Temperature 36.8 C 09/15/21 12:38 Temperature Source Temporal Artery Scan 09/15/21 12:38 Pulse 69 09/15/21 12:38 Respiratory Rate 16 09/15/21 12:38 Respiratory Effort 09/15/21 12:38 Blood Pressure 128/83 09/15/21 12:38 Blood Pressure Position Sitting 09/15/21 12:38 Pulse Oximetry 100 09/15/21 12:38 Oxygen Delivery Method Room Air 09/15/21 12:38 Oxygen Flow Rate 0 09/15/21 12:38 Pain Level 5 09/15/21 12:38 Procedures Laceration Laceration 1: Site: hand Side (If applicable): right Size (cm): 2 Description: linear Depth: simple, single layer Local Anesthetic: Lidocaine 2% Amount of anesthesia used (mL): 4 Pre-repair: wound explored Skin layer closed with: nylon Size (cm): 5-0 Number of sutures: 3 Technique: simple, interrupted
[2021-09-15] MEDS: Tetanus & Diphtheria Tox,ADULT 0.5 ML VIAL IM (13:26)
[2021-09-15] MEDS: Lidocaine 2% Multi-Dose 50 ML VIAL (13:35)
== END 2021-09-15 13:41 | disposition home or self-care (01) ==
PROVIDERS: Emergency Provider Emergency Medicine; PCP Family Medicine
DX: S61.211A Laceration without foreign body of left index finger without damage to nail, initial encounter (principal); W26.0XXA Contact with knife, initial encounter; Y99.0 Civilian activity done for income or pay
CPT/HCPCS: 12001; 90471

== ENCOUNTER 2023-02-22 08:21 | Emergency (ER) | payer MEDICAID, SELFPAY ==
[2023-02-22] VITALS (10 sets, daily range): BP systolic 127–142; BP diastolic 80–107; PULSE 54–72; RESP 12–21; TEMP 36.8; O2SAT 98–100
--- NOTE | 2023-02-22 08:30 | RT.EKG_ITS ---
APPROVED REPORT Exam: Resting ECG Reason for Exam: chest pain Patient Location: E HR:61 bpm ECG Measurements Heart Rate 61 AXIS RI 131 P 60 QRSd 98 QRS 22 QT 429 T 14 QTc 432 Conclusion Sinus rhythm... V-rate 60- [address]. [address] segment or T wave abnormalities to suggest occlusive MT
--- NOTE | 2023-02-22 08:36 | W.ED.GENAD ---
Discharge Plan Disposition Patient Disposition: Home Discharge Details Chief Complaint: Trauma Clinical Impression: Chest pain of unknown etiology Primary Care Provider: Tiago France ED Provider: Trish Brown Home Meds and New Rx's Prescriptions: No Action fluticasone propionate 50 mcg/actuation spray,suspension 2 spray NS DAILY PRN (Reason: allergy symptoms) Qty: 16 2RF omeprazole magnesium [Prilosec OTC] 20 mg tablet,delayed release (DR/EC) 20 mg PO DAILY PRN norgestimate-ethinyl estradiol [Tri-Sprintec (28)] 0.18/0.215/0.25 mg-35 mcg (28) tablet See Rx Instructions .ROUTE .COMPLEX Qty: 84 3RF Dose Instruction: TAKE 1 TABLET BY MOUTH DAILY Rx Instructions: TAKE 1 TABLET BY MOUTH DAILY Discharge Instructions Instructions: Chest Pain (ED) Additional Instructions: Take tylenol and ibuprofen over the counter as needed for pain; follow the directions on the bottle. Call your primary care doctor today to schedule an appointment within one week to followup on your visit here. Return to the emergency department for new or worsening symptoms including new/different/worse chest pain, difficultly breathing, or if you have any other concerns. Stand Alone Forms: Work Release Medical Decision Making 32yo previously healthy female presenting with left sided chest pain constant and worsening since Wednesday; tripped and fell three days ago walking down a hill, landed on her left side. Vital signs reassuring, left anterior chest wall/breast tender to palpation with no echymosis. Low suspicion for acute cardiac event or pulmonary embolism however given pain is worsening and has pleuritic component will get labs. EKG NSR, appropriate intervals, no St segment or T wave abnormaliteis to suggiest occlusive PA. CXR independently reviewed, no focal pneumonia or pneumothorax on my view, agree with radiolgoy read below. Labs reviewed as below, CBC & CMP reassuring, dimer negative (would not further workup PE), troponin negative in the setting of days of constant chest pain. Suspect likely MSK etiology; given tylenol and toradol. On reassessment she remains well appearing with reassuring vital signs. HEART score 0. Discharged home; discharge instructions including return precautions were reviewed with patient who verbalized understanding. All questions were answered and they are in full agreement with the plan. Imaging Data Radiologic Study: Imaging: X-Ray Radiologist's impression: IMPRESSION: No acute pulmonary findings. Lab Data Lab results reviewed: Yes I reviewed the patient's lab results. HPI General Mode of arrival: ambulatory. Date/Time Provider Initiated Documentation: 02/22/23 08:22. Limitations to Documentation: no limitations. Information obtained by: patient. HPI Narrative: 32yo previously healthy female presenting with left sided chest pain constant and worsening since Wednesday. Tripped and fell three days ago walking down a hill, landed on her left side. Since then has had dull left anterior chest pain, worse with deep inspiration. Minimal relief with ibuprofen at home. Has not had any pain medication since yesterday. Also reports bruising to her left leg. No shortness of breath, palpitations, presyncope, or syncope. She is otherwise in her usual state of health with no fevers, chills, rash, nausea, vomiting, abdominal pain, numbness, tinlging, weakness, LE edema, or other concerns. Related Data Home Medications Medication Instructions Recorded Confirmed fluticasone propionate 50 2 spray NS DAILY PRN allergy 02/15/18 02/22/23 mcg/actuation nasal symptoms #16 grams spray,suspension omeprazole magnesium 20 mg 20 mg PO DAILY PRN 05/20/21 02/22/23 tablet,delayed release (Prilosec OTC) norgestimate-ethinyl estradiol See Rx Instructions .Route 05/26/22 02/22/23 0.18 mg/0.215mg/0.25mg-35 .COMPLEX #84 tabs mcg(28)tablet (Tri-Sprintec (28)) Previous Rx's Medication Instructions Recorded fluticasone propionate 50 2 spray NS DAILY PRN allergy 02/15/18 mcg/actuation nasal symptoms #16 grams spray,suspension norgestimate-ethinyl estradiol See Rx Instructions .Route 05/26/22 0.18 mg/0.215mg/0.25mg-35 .COMPLEX #84 tabs mcg(28)tablet (Tri-Sprintec (28)) Allergies Allergy/AdvReac Type Severity Reaction Status Date / Time No Known Allergies Allergy Verified 02/22/23 08:27 General Stated Complaint: Trauma BUBBA: 3 Review of Systems Narrative: see HPI PFSH All Active Problems (Updated 02/22/23 @ 09:54 by Trish Brown MD) Chest pain of unknown etiology (Acute) Acute pain of left knee (Chronic) Depressive disorder (Chronic) Tobacco use disorder (Acute 05/02/14) Contraception (Acute 01/19/17) Anxiety (Chronic 10/29/15) Medical History (Updated 02/22/23 @ 09:54 by Trish Brown MD) 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 History of depression Family History (Updated 11/11/21 @ 09:48 by Sebastian Lopez) Brother Essential hypertension Spina bifida aperta of lumbosacral spine Mother Fibromyalgia Maternal Grandfather Lupus Pancreatic cancer Social History (Updated 11/12/21 @ 12:05 by Kyleigh Banerjee) Smoking/Tobacco Use Status: Current-Occasional Tobacco Type: cigarettes Tobacco: How many years used: 10 Quit status: considering quitting Second Hand Exposure: Yes Smoking risk assessment performed?: Yes Alcohol Intake: current Alcohol Intake frequency: holidays/special occasions only Drug use: Never Substance use type: does not use Caregiver/Support person: Yes Household members: children Housing: apartment Communication Needs: None Do you need help understanding health information?: Never current occupation: [employer] Pets and animals: Yes Pets and animals: cat(s) Sexually active: Yes What is your relationship status?: How often do you talk on the phone with friends or family?: three or more times per week How often do you get together with friends or relatives?: three or more times per week Do you belong to any clubs or organized social groups?: no Panel score (0-1 are the most socially isolated patients): 1 What type of physical activity do you participate in: walking Duration: 15-30 minutes/day Frequency: 3-4 times per week Seatbelt use: always Helmet use: Yes Helmet use: always Firearms in home: No Do you feel safe at home: Yes Do you feel safe in your relationship?: Yes History History 2 Para Hx # Term Pregnancies 1 Multiple births Hx # Pregnancies Ectopic pregnancies AB induced Hx Number of Living Children AB spontaneous Exam Narrative Exam Narrative: General: Alert, well appearing, well nourished, in no acute distress. Head: Normocephalic, atraumatic Neck: Trachea midline, Neck supple. ENT: MMM. No oropharygeal lesions or exudate. Cardiac: RRR, no murmurs appreciated. Left anterior chest wall/breast tender to palpation, no overlying echymosis or ertyhema. Resp: No respiratory distress. CTAB. Abd: Soft, non-distended, nontender : No suprapubic tenderness. No CVA tenderness. Extremities: No deformities. No peripheral edema. Echymosis left roldan. Neurologic: GCS 15. Moves all extremities freely against gravity Course Vital Signs Vital signs: Vital Signs Temperature 36.8 C 02/22/23 08:24 Pulse 70 02/22/23 08:24 Respiratory Rate 20 02/22/23 08:24 Blood Pressure 127/99 H 02/22/23 08:24 Pulse Oximetry 99 02/22/23 08:24 Temperature 36.8 C 02/22/23 08:24 Temperature Source Oral 02/22/23 08:24 Pulse 70 02/22/23 08:24 Respiratory Rate 20 02/22/23 08:24 Respiratory Effort Short of Breath 02/22/23 08:28 Blood Pressure 127/99 H 02/22/23 08:24 Blood Pressure Position Sitting 02/22/23 08:24 Pulse Oximetry 99 02/22/23 08:24 Oxygen Delivery Method Room Air 02/22/23 08:24 Oxygen Flow Rate 0 02/22/23 08:24 Pain Level 10 02/22/23 08:24
[2023-02-22] MEDS: Acetaminophen 500 MG TAB 1000 MG PO (08:54)
[2023-02-22 08:57] LABS: Abs Immature Grans 0.02 10^3/uL (0.0-0.06); Absolute Basophil Count 0.03 10^3/uL (0.0-0.2); Absolute Eosinophil Count 0.06 10^3/uL (0.0-0.7); Absolute Lymphocyte Count 2.49 10^3/uL (1.2-3.4); Absolute Monocyte Count 0.67 10^3/uL (0.1-0.8); Absolute Neutrophil Count 4.41 10^3/uL (1.2-6.7); Basophils % 0.4; Eosinophils % 0.8; HCT 42.1 % (36.0-46.0); HGB 13.8 g/dL (11.2-15.7); Immature Grans % 0.3; Lymphocytes % 32.4; MCH 30.6 pg (27.0-33.0); MCHC 32.8 % (32.0-36.0); MCV 93 fL (80-95); MPV 10.5 fL (8.0-11.0); Monocytes % 8.7; Neutrophils % 57.4; Platelet Count 217 10^3/uL (130-400); RBC 4.51 10^6/uL (3.93-5.22); RDW 12.3 % (11.7-14.6); RDW-SD 42.7 fL; WBC 7.68 10^3/uL (4.4-10.8)
--- NOTE | 2023-02-22 09:01 | DI.RAD_ITS ---
Exam(s) XR CHEST 2V PA LATERAL EXAM: XR CHEST 2V PA LATERAL CLINICAL HISTORY: fall, left chest wall pain. TECHNIQUE: 2D digital imaging was performed. COMPARISON: CR XR CHEST 2V PA LATERAL from 05/14/2021 FINDINGS: 2 views: Heart size is normal. The mediastinum is not widened. Lungs are clear. No infiltrates nor pleural effusions. IMPRESSION: No acute pulmonary findings. DATA REPOSITORY: RADIATION DOSE DELIVERED:
[2023-02-22 09:29] LABS: D-Dimer 221 ng/mlFEU (<500)
[2023-02-22 09:45] LABS: ALT 24 U/L (14-59); AST 19 U/L (15-37); Albumin 3.4 g/dL (3.4-5.0); Alkaline Phosphatase 78 U/L (46-116); Anion Gap 8.7 mmol/L (3-11); BUN 8 mg/dL (7-18); Bilirubin, Total 0.3 mg/dL (0.2-1.0); CO2 27.3 mmol/L (21.0-32.0); CREATININE 0.7 mg/dL (0.55-1.02); Calcium 8.9 mg/dL (8.5-10.1); Chloride 104 mmol/L (98-107); Estimated GFR 116.31 (mL/min/1.73m2); Glucose 84 mg/dL (74-106); Potassium 3.5 mmol/L (3.5-5.1); Sodium 140 mmol/L (136-145); Total Protein 7.4 g/dL (6.4-8.2)
[2023-02-22 09:46] LABS: HCG Quant, Pregnancy < 1 mIU/mL (1-3)
[2023-02-22 09:47] LABS: Troponin I < 50 ng/L (<or=60)
[2023-02-22] MEDS: Ketorolac 15 MG/ML VIAL IM (09:57)
== END 2023-02-22 10:04 | disposition home or self-care (01) ==
PROVIDERS: Emergency Provider Student in an Organized Health Care Education/Training Program; PCP Family Medicine
DX: R07.9 Chest pain, unspecified (principal); W01.10XA Fall on same level from slipping, tripping and stumbling with subsequent striking against unspecified object, initial encounter
CPT/HCPCS: 36415; 80053; 81025; 93005; 96372; 99283; 71046; 84484; 84702; 85025; 85379; 93010; J1885

== ENCOUNTER 2023-08-18 10:21 | Emergency (ER) | payer MEDICAID, SELFPAY ==
[2023-08-18 10:35] VITALS: BP 127/69; PULSE 72; RESP 15; TEMP 36.3; O2SAT 98
--- NOTE | 2023-08-18 14:30 | DI.RAD_ITS ---
Exam(s) XR THUMB LT EXAM: XR THUMB LT CLINICAL HISTORY: Swelling. TECHNIQUE: 2D digital imaging was performed. Three views. COMPARISON: None. FINDINGS: BONES: No acute fracture is present. No bony destructive lesion is seen. JOINTS: No dislocation present. SOFT TISSUE: Normal. IMPRESSION: No evidence of acute fracture, dislocation, or subluxation. DATA REPOSITORY: RADIATION DOSE DELIVERED:
--- NOTE | 2023-08-18 14:43 | ED.GENADUL_ITS ---
Discharge Plan Disposition Patient Disposition: Home Condition: Stable Discharge Details Clinical Impression: Cellulitis of left thumb Primary Care Provider: Tiago France ED Provider: Franca Palmer Home Meds and New Rx's Prescriptions: New cephalexin 500 mg tablet 500 mg PO BID 7 Days Qty: 14 0RF No Action fluticasone propionate 50 mcg/actuation spray,suspension 2 spray NS DAILY PRN (Reason: allergy symptoms) Qty: 16 2RF omeprazole magnesium [Prilosec OTC] 20 mg tablet,delayed release (DR/EC) 20 mg PO DAILY PRN norgestimate-ethinyl estradiol [Tri-Sprintec (28)] 0.18/0.215/0.25 mg-35 mcg (28) tablet See Rx Instructions .ROUTE .COMPLEX Qty: 84 3RF Dose Instruction: TAKE 1 TABLET BY MOUTH DAILY Rx Instructions: TAKE 1 TABLET BY MOUTH DAILY Discharge Instructions Instructions: Cellulitis (ED) Additional Instructions: Take the antibiotics twice daily as directed with yogurt or probiotic. No evidence of abnormality on the X-ray. I am suspecting a infection. Please take Tylenol or Ibuprofen with food every 4-6 hours as needed for pain and swelling. Follow up with primary care provider in 3-5 days. Return to ED sooner if any worsening or concerns. Stand Alone Forms: Work Release Referrals: Tiago France MD [Primary Care Provider] - 5 days Discharge Data Discharge Date/Time-TO BE ENTERED AT DEPARTURE: 08/18/23 15:42 HPI General Mode of arrival: ambulatory . Date/Time Provider Initiated Documentation: 08/18/23 10:42 . Limitations to Documentation: no limitations . Information obtained by: patient, RN notes reviewed and old records reviewed . HPI Narrative: 32 year old female presents to the ER with cc left thumbn redness, swelling, and erythema since yesterday. She reports that she has no known injury. She is having difficulty flexing her thumb. No tenderness around the nailbed or evidence of paronychia or felon. She she does have some erythema around the joint space. She does have a history of depression. There is no open lesions noted. Related Data Home Medications Medication Instructions Recorded Confirmed fluticasone propionate 50 2 spray NS DAILY PRN allergy 02/15/18 02/22/23 mcg/actuation nasal symptoms #16 grams spray,suspension omeprazole magnesium 20 mg 20 mg PO DAILY PRN 05/20/21 02/22/23 tablet,delayed release (Prilosec OTC) norgestimate-ethinyl estradiol See Rx Instructions .Route 03/11/23 0.18 mg/0.215mg/0.25mg-35 .COMPLEX #84 tabs mcg(28)tablet (Tri-Sprintec (28)) cephalexin 500 mg tablet 500 mg PO BID 7 days #14 tabs 08/18/23 Previous Rx's Medication Instructions Recorded fluticasone propionate 50 2 spray NS DAILY PRN allergy 02/15/18 mcg/actuation nasal symptoms #16 grams spray,suspension norgestimate-ethinyl estradiol See Rx Instructions .Route 03/11/23 0.18 mg/0.215mg/0.25mg-35 .COMPLEX #84 tabs mcg(28)tablet (Tri-Sprintec (28)) cephalexin 500 mg tablet 500 mg PO BID 7 days #14 tabs 08/18/23 Allergies Allergy/AdvReac Type Severity Reaction Status Date / Time No Known Allergies Allergy Verified 02/22/23 08:27 General Stated Complaint: RashLesion BUBBA: 4 Review of Systems All systems reviewed & are unremarkable except as noted in HPI and below Musculoskeletal Musculoskeletal: Reports as per HPI, Reports arthralgias, Reports joint swelling and Reports limited range of motion Integumentary/Breasts Skin/Breast: Reports erythema, Reports skin pain and Reports skin swelling Exam Extrem Left upper extremity: hand Details: tenderness Location: of the thumb and swelling Location: of the thumb Location: at the MCP joint and on the dorsal aspect Hand/finger images: 2 1. swelling around MCP joint, decreased range of motion Course Vital Signs Vital signs: Vital Signs Temperature 36.3 C L 08/18/23 10:35 Pulse 72 08/18/23 10:35 Respiratory Rate 15 08/18/23 10:35 Blood Pressure 127/69 08/18/23 10:35 Pulse Oximetry 98 08/18/23 10:35 Temperature 36.3 C L 08/18/23 10:35 Temperature Source Temporal Artery Scan 08/18/23 10:35 Pulse 72 08/18/23 10:35 Respiratory Rate 15 08/18/23 10:35 Blood Pressure 127/69 08/18/23 10:35 Blood Pressure Position Sitting 08/18/23 10:35 Pulse Oximetry 98 08/18/23 10:35 Oxygen Delivery Method Room Air 08/18/23 10:35 Oxygen Flow Rate 0 08/18/23 10:35 Pain Level 7 08/18/23 10:35 Medical Decision Making 32 year old female presents to the ER with cc left thumbn redness, swelling, and erythema since yesterday. She reports that she has no known injury. She is having difficulty flexing her thumb. No tenderness around the nailbed or evidence of paronychia or felon. She she does have some erythema around the joint space. She does have a history of depression. There is no open lesions noted. X-ray ordered. Differential includes, cellulitis, occult fracture, injury, sprain, arthritis. X-ray within normal limits. Will give cephalexin and ibuprofen. Imaging Data Radiologic Study: Imaging: X-Ray Radiologist's impression: EXAM: XR THUMB LT CLINICAL HISTORY: Swelling. TECHNIQUE: 2D digital imaging was performed. Three views. COMPARISON: None. FINDINGS: BONES: No acute fracture is present. No bony destructive lesion is seen. JOINTS: No dislocation present. SOFT TISSUE: Normal. IMPRESSION: No evidence of acute fracture, dislocation, or subluxation. Quality:SDOH Health Related Social Needs: 2 No Data to Display PFSH All Active Problems (Updated 08/18/23 @ 15:27 by Franca Palmer NP) Cellulitis of left thumb (Acute) Acute pain of left knee (Chronic) Depressive disorder (Chronic) Tobacco use disorder (Acute 05/02/14) Contraception (Acute 01/19/17) Anxiety (Chronic 10/29/15) Medical History History of depression 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 Family History Brother Essential hypertension Spina bifida aperta of lumbosacral spine Mother Fibromyalgia Maternal Grandfather Lupus Pancreatic cancer Social History Smoking/Tobacco Use Status: Current-Occasional Tobacco Type: cigarettes Tobacco: How many years used: 10 Quit status: considering quitting Second Hand Exposure: Yes Smoking risk assessment performed?: Yes Alcohol Intake: current Alcohol Intake frequency: holidays/special occasions only Drug use: Never Substance use type: does not use Caregiver/Support person: Yes Household members: children Housing: apartment Communication Needs: None Do you need help understanding health information?: Never current occupation: [employer] Pets and animals: Yes Pets and animals: cat(s) Sexually active: Yes What is your relationship status?: How often do you talk on the phone with friends or family?: three or more times per week How often do you get together with friends or relatives?: three or more times per week Do you belong to any clubs or organized social groups?: no Panel score (0-1 are the most socially isolated patients): 1 What type of physical activity do you participate in: walking Duration: 15-30 minutes/day Frequency: 3-4 times per week Seatbelt use: always Helmet use: Yes Helmet use: always Firearms in home: No Do you feel safe at home: Yes Do you feel safe in your relationship?: Yes History History 2 2 Para Hx # Term Pregnancies 1 Multiple births Hx # Pregnancies Ectopic pregnancies AB induced Hx Number of Living Children AB spontaneous
[2023-08-18] MEDS: Acetaminophen 325 MG TAB 650 MG PO (15:16)
[2023-08-18] MEDS: Cephalexin 500 MG CAP PO (15:16)
== END 2023-08-18 15:42 | disposition home or self-care (01) ==
PROVIDERS: Emergency Provider Registered Nurse Emergency; PCP Family Medicine
DX: L03.012 Cellulitis of left finger (principal)
CPT/HCPCS: 99283; 73140

== ENCOUNTER 2023-09-21 15:04 | Outpatient (REF) | payer MEDICAID, SELFPAY ==
[2023-09-21 21:39] LABS: TSH (W/Ref FT4) 2.86 uIU/mL (0.36-3.74)
[2023-09-22 19:28] LABS: Hepatitis C Ab w Rflx HCV PCR Negative (Negative)
== END 2023-09-21 15:05 | disposition home or self-care (01) ==
LOC: LBN 15:04
PROVIDERS: PCP Nurse Practitioner Family; Visit Provider Nurse Practitioner Family
DX: Z11.59 Encounter for screening for other viral diseases (principal); F32.9 Major depressive disorder, single episode, unspecified
CPT/HCPCS: 86803; 84443

== ENCOUNTER 2024-01-27 02:29 | Outpatient (CLI) | payer MEDICAID, SELFPAY ==
--- NOTE | 2024-01-27 07:15 | DI.CT_ITS ---
Exam(s) CT CHEST PE CTA EXAM: CT CHEST PE CTA CLINICAL HISTORY: chest pain with respiration,cough,wt loss,smoker. TECHNIQUE: Imaging Protocol: Axial CT angiography was performed with multi-slice acquisition and mu lti-planar and/or 3D reconstructions. CONTRAST MATERIAL: Intravenous: Omnipaque 350 contrast volume:100 mL COMPARISON: CT CT renal colic wo from 05/19/2018 CR XR CHEST 2V PA LATERAL from 02/22/2023 FINDINGS: Tracheobronchial tree: Patent where visualized. No bronchiectasis. Pulmonary parenchyma: No consolidation or dominant measurable mass. No architectural distortion. Pulmonary Arteries: No evidence of filling defect to suggest pulmonary emboli. Mediastinum and Desirae: No dominant adenopathy or fluid collection. The esophagus is unremarkable. Visualized thyroid gland: Unremarkable. Pleura: No effusion or pneumothorax. Heart: The heart is not dilated. No coronary artery calcifications are seen. No pericardial effusion. Aorta: Thoracic aorta non-dilated. The aorta is suboptimally opacified for evaluation aortic dissecti on. Upper abdomen: Unremarkable. Soft tissues: Unremarkable. Bones: Within normal limits for the patient's age.There is a single round sclerotic focus in the T9 v ertebral body. This may represent a bone island. IMPRESSION: 1. No evidence of a pulmonary embolism or thoracic aortic aneurysm. 2. No acute pulmonary process. 3. Single round sclerotic focus in the T9 vertebral body. This may represent a bone island. If ther e is history of cancer, bone scan should be considered for further evaluation. Unexpected findings RADIATION DOSE DELIVERED: 79.18mGy.cm Total DLP DATA REPOSITORY: All CT scans at this facility are submitted to the National Radiology Data Registry (NRDR) Dose Index Registry (DIR) with the [employer] (A[employer]). RADIATION OPTIMIZATION: All CT scans at this facility use at least one of these dose optimization te chniques: automated exposure control; mA and/or kV adjustment per patient size (includes targeted exa ms where dose is matched to clinical indication); or iterative reconstruction.
[2024-01-27] MEDS: Normal Saline - Diluent 50 ML VIAL IJ (11:03)
[2024-01-27] MEDS: Omnipaque 350 MG/ML 100 ML BTL IJ (11:04)
== END 2024-01-27 02:49 ==
LOC: DI 02:29
PROVIDERS: PCP Nurse Practitioner Family; Visit Provider Nurse Practitioner Family
DX: R07.9 Chest pain, unspecified (principal); R05.9 Cough, unspecified; F17.210 Nicotine dependence, cigarettes, uncomplicated; R63.4 Abnormal weight loss
CPT/HCPCS: 71275; J3490

== ENCOUNTER 2024-01-31 02:00 | Outpatient (CLI) | payer MEDICAID, SELFPAY ==
[2024-01-31 12:25] LABS: Abs Immature Grans 0.03 10^3/uL (0.0-0.06); Absolute Basophil Count 0.03 10^3/uL (0.0-0.2); Absolute Eosinophil Count 0.06 10^3/uL (0.0-0.7); Absolute Lymphocyte Count 2.57 10^3/uL (1.2-3.4); Absolute Monocyte Count 0.52 10^3/uL (0.1-0.8); Absolute Neutrophil Count 3.99 10^3/uL (1.2-6.7); Basophils % 0.4 %; Eosinophils % 0.8 %; HCT 42.1 % (36.0-46.0); HGB 13.1 g/dL (11.2-15.7); Immature Grans % 0.4 %; Lymphocytes % 35.7 %; MCH 30.5 pg (27.0-33.0); MCHC 31.1 % (32.0-36.0); MCV 98 fL (80-95); MPV 11.3 fL (8.0-11.0); Monocytes % 7.2 %; Neutrophils % 55.5 %; Platelet Count 192 10^3/uL (130-400); RDW 12.9 % (11.7-14.6); RDW-SD 46.5 fL
[2024-01-31 12:47] LABS: ALT 46 U/L (14-59); AST 38 U/L (15-37); Albumin 3.4 g/dL (3.4-5.0); Alkaline Phosphatase 79 U/L (46-116); Anion Gap 6.3 mmol/L (3-11); BUN 8 mg/dL (7-18); Bilirubin, Total 0.33 mg/dL (0.2-1.0); CO2 29.7 mmol/L (21.0-32.0); CREATININE 0.7 mg/dL (0.55-1.02); Calcium 8.4 mg/dL (8.5-10.1); Chloride 106 mmol/L (98-107); Estimated GFR 115.59 (mL/min/1.73m2); Glucose 87 mg/dL (74-106); Potassium 4.1 mmol/L (3.5-5.1); Sodium 142 mmol/L (136-145); TSH (W/Ref FT4) 3.71 uIU/mL (0.36-3.74); Total Protein 6.6 g/dL (6.4-8.2)
[2024-02-01 08:52] LABS: Vitamin B12 293 pg/mL (193-986)
== END 2024-01-31 02:01 | disposition home or self-care (01) ==
LOC: LOS 02:00
PROVIDERS: PCP Nurse Practitioner Family; Visit Provider Nurse Practitioner Family
DX: R63.4 Abnormal weight loss (principal); R05.9 Cough, unspecified
CPT/HCPCS: 36415; 80053; 82607; 84443; 85025

== ENCOUNTER 2024-02-09 12:14 | Outpatient (CLI) | payer MEDICAID, SELFPAY ==
[2024-02-09 13:24] LABS: Ferritin 59 ng/mL (8-252)
[2024-02-09 13:26] LABS: Folate > 20.0 ng/mL (8.6-20.0)
[2024-02-09 13:54] LABS: Iron 105 ug/dL (50-170)
== END 2024-02-09 12:15 | disposition home or self-care (01) ==
LOC: LBO 12:14
PROVIDERS: PCP Nurse Practitioner Family; Visit Provider Nurse Practitioner Family
DX: D75.89 Other specified diseases of blood and blood-forming organs (principal)
CPT/HCPCS: 36415; 82728; 82746; 83540

== ENCOUNTER 2024-03-01 00:35 | Outpatient (CLI) | payer MEDICAID, SELFPAY ==
--- NOTE | 2024-03-01 06:30 | DI.NM_ITS ---
Exam(s) NM BONE SCAN WHOLE BODY GRP EXAM: NM BONE SCAN WHOLE BODY GRP CLINICAL HISTORY: persistent BONE PAIN, BONE ISLAND,WT LOSS,R63.4,M89.8X9. TECHNIQUE: Injected Dose: 25 mCi Tc-99m MDP Delayed Images: 2-3 hours. COMPARISON: CT CT renal colic wo from 05/19/2018 CR XR CHEST 2V PA LATERAL from 05/14/[address] CHEST PE CTA from 01/27/2024 FINDINGS: There is no abnormal focal uptake seen in the T9 vertebral body which is a site of the small scleroti c bone density seen on recent CT scan 01/27/2024. There is a solitary focus of increased radiopharmaceutical uptake in the entire skeleton, this being in the anterior aspect of the right 2nd rib. This corresponds to a fracture at this level evident on the CT scan of 01/27/2024. There are no other foci of increased rate pharmaceutical uptake seen in the skeleton. IMPRESSION: 1. There is a solitary focus of increased radiopharmaceutical uptake seen in the anterior aspect of t he right 2nd rib. This corresponds to a fracture site at this level which is evident on CT scan of 0 01/27/2024. 2. No other abnormalities identified. DATA REPOSITORY:
== END 2024-03-01 00:55 ==
LOC: DI 00:35
PROVIDERS: PCP Nurse Practitioner Family; Visit Provider Nurse Practitioner Family
DX: M89.8X8 Other specified disorders of bone, other site (principal); R63.4 Abnormal weight loss
CPT/HCPCS: 78306

== ENCOUNTER 2025-01-16 17:25 | Emergency (ER) | payer MEDICAID, SELFPAY ==
[2025-01-16 17:27] VITALS: BP 119/81; PULSE 67; RESP 18; TEMP 36.3; O2SAT 98
[2025-01-16 17:35] VITALS: BP 119/81; PULSE 67; RESP 16; TEMP 36.3; O2SAT 98
--- NOTE | 2025-01-16 17:38 | ED.GENADUL_ITS ---
Discharge Plan Disposition Patient Disposition: Home Discharge Details Clinical Impression: Abdominal pain Primary Care Provider: Josfaat Moser ED Provider: Reina Andrade Home Meds and New Rx's Prescriptions: No Action albuterol sulfate 90 mcg/actuation HFA aerosol inhaler 2 puff inhalation Q6H PRN (Reason: shortness of breath or wheezing) Qty: 6.7 0RF bupropion HCl 100 mg tablet 100 mg PO BID Qty: 60 11RF norgestimate-ethinyl estradiol [Tri-Sprintec (28)] 0.18/0.215/0.25 mg-0.035mg (28) tablet See Rx Instructions .ROUTE .COMPLEX Qty: 84 4RF Dose Instruction: TAKE 1 TABLET BY MOUTH DAILY Rx Instructions: TAKE 1 TABLET BY MOUTH DAILY fluticasone propionate 50 mcg/actuation spray,suspension 2 spray NS DAILY PRN (Reason: allergy symptoms) Qty: 16 2RF Discharge Instructions Additional Instructions: Please call your primary care provider first thing tomorrow morning to schedule follow-up appointment for further evaluation. Your workup today was very reassuring, however outpatient workup may be indicated if you continue to have discomfort. Your CAT scan did show possible kidney stones that are in the kidneys but have not moved; they are also cysts on your ovaries that are consistent with your menstrual cycle. I recommend that you stay well-hydrated, drinking plenty of fluids for today. You may use Tylenol 650 mg every 6 hours and ibuprofen 600 mg every 8 hours for discomfort as needed. Heating pads may also be helpful. You may also use lidocaine patches on your back, please do not put heat or ice over the patches though. Return to emergency care if you develop new fevers associated belly pain, uncontrollable vomiting, blood in your stool or vomit, new severe abdominal pain, or if you are very worried and need to be rechecked again immediately. Referrals: Josafat Moser, [employer]PERATOR [Primary Care Provider, Medicine] HPI General Date/Time Provider Initiated Documentation: 01/16/25 17:31 . HPI Narrative: Brittany is a 34-year-old female who presents to the emergency department for evaluation of constant aching flank pain and intermittent lower abdominal cramping pain accompanied by diarrhea x 1 week. Reports cramping and diarrhea is triggered by fatty foods, is accompanied by nausea. Flank pain is described as constant, says it feels like when she has had pyelonephritis in the past. Denies fever/chills, congestion, sore throat, cough, chest pain, difficulty breathing, change in p.o. intake, vomiting, blood in stool, dysuria, change in menstrual cycle, unusual vaginal discharge. No history of abdominal surgeries at digestive disorders other than GERD. Denies regular EtOH use Related Data Home Medications ?Medication ?Instructions ?Recorded ?Confirmed albuterol sulfate 90 mcg/actuation 2 puff inhalation Q 6H PRN 07/12/24 01/16/25 aerosol inhaler shortness of breath or wheez ing #6.7 grams bupropion HCl 100 mg tablet 100 mg PO BID #60 tabs 01/16/25 fluticasone propionate 50 2 spray NS DAILY PRN allergy 12/04/24 01/16/25 mcg/actuation nasal symptoms #16 grams spray,suspension norgestimate-ethinyl estradiol See Rx Instructions .Ro shola 12/04/24 01/16/25 0.18mg/0.215mg/0.25mg-0.035mg(28)tablet .COMPLEX #84 t abs (Tri-Sprintec (28)) Previous Rx's ?Medication ?Instructions ?Recorded albuterol sulfate 90 mcg/actuation 2 puff inhalation Q 6H PRN 07/12/24 aerosol inhaler shortness of breath or wheez ing #6.7 grams bupropion HCl 100 mg tablet 100 mg PO BID #60 tabs fluticasone propionate 50 2 spray NS DAILY PRN allergy 12/04/24 mcg/actuation nasal symptoms #16 grams spray,suspension norgestimate-ethinyl estradiol See Rx Instructions .Ro shola 12/04/24 0.18mg/0.215mg/0.25mg-0.035mg(28)tablet .COMPLEX #84 t abs (Tri-Sprintec (28)) Allergies Allergy/AdvReac Type Severity Reaction Status Date / Time No Known Allergies Allergy Verified 01/16/25 17:32 General Stated Complaint: Abd Prob BUBBA: 3 Exam Narrative Exam Narrative: General Appearance: Normal. Patient is alert and oriented, no acute distress. Vital signs: Within normal limits. HEENT: Moist mucous membranes Respiratory: Easy work of breathing, breath sounds clear bilaterally. Cardiovascular: Regular rate and rhythm, normal heart sounds Gastrointestinal: Abdomen soft, non-distended, no rigidity or guarding, normoactive bowel sounds. Tenderness to palpation to lower abdomen, most significantly over suprapubic area. Back, Musculoskeletal: No CVA tenderness Skin: Warm and dry, no rash. Psychiatric: Normal. Course Vital Signs Vital signs: Vital Signs Temperature 36.3 C L 01/16/25 17:27 Pulse 67 01/16/25 17:27 Respiratory Rate 18 01/16/25 17:27 Blood Pressure 119/81 01/16/25 17:27 Pulse Oximetry 98 01/16/25 17:27 Temperature 36.3 C L 01/16/25 17:35 Temperature Source Oral 01/16/25 17:35 Pulse 67 01/16/25 17:35 Respiratory Rate 16 01/16/25 17:35 Blood Pressure 119/81 01/16/25 17:35 Blood Pressure Position Sitting 01/16/25 17:35 Pulse Oximetry 98 01/16/25 17:35 Oxygen Delivery Method Room Air 01/16/25 17:35 Oxygen Flow Rate 0 01/16/25 17:27 Pain Level 10 01/16/25 17:27 Medical Decision Making Initial Assessment: 34-year-old female with cramping and aching lower abdominal pain and aching lower back pain for one week. Pain associated with diarrhea and nausea, exacerbated by fatty foods. No vomiting, fever, chills, or urinary symptoms. History of acid reflux and previous kidney infection. Differential Diagnosis includes but not limited to: Pyelonephritis, UTI, kidney stone, viral gastroenteritis, muscle strain, IBD, IBS, ovarian cyst. No red flags concerning for acute surgical abdomen at this time ED Course: - Blood work obtained - Toradol IV and Zofran given with good improvement of symptoms, pain reduced from 10/10 to 6/10 and patient reports she is feeling much more comfortable - CT abdomen/pelvis performed I independently interpreted the following tests: CBC, CMP, lipase, magnesium, UA, hCG all unremarkable. CT abdomen/pelvis performed, small densities in both kidneys may represent calculi versus IV contrast, no hydronephrosis or hydroureter concerning for obstructive process. I did review with patient these findings, as well as ovarian cyst noted. Clinical Impression: - Abdominal pain, unknown etiology. Workup today overall reassuring. Recommend further evaluation with PCP if symptoms persist Disposition: Reviewed discharge instructions with patient, including symptomatic management, importance of follow-up with PCP, and red flags indicating need for return to emergency care. Discharge: Home, follow-up with primary care doctor. Return to ED if pain worsens, fever, or uncontrollable vomiting occurs. Follow-Up: Follow-up with primary care doctor Patient Education: Discussed signs and symptoms of kidney infection, gallbladder disease, and gastroenteritis. Advised to avoid fatty foods and stay hydrated. Patient consented to the use of BO Imaging Data Radiologic Study: Radiologist's impression: Exam(s) CT ABDOMEN PELVIS W EXAM: CT ABDOMEN PELVIS W CLINICAL HISTORY: flank pain and suprapubic/lower abd pain. TECHNIQUE: Imaging Protocol: Axial computed tomography images with coronal and sagittal reformatted images were created and reviewed CONTRAST MATERIAL: Intravenous: Omnipaque-350 75cc Oral: Entering the calices. COMPARISON: CT CT renal colic wo from 05/19/2018 FINDINGS: VISUALIZED LUNG BASES: No nodules nor pleural effusions evident. ABDOMEN: There is no ascites. LIVER: There are no focal hepatic lesions evident. No dilated intrahepatic ducts. GALLBLADDER/BILIARY: No obvious gallbladder pathology. CBD is not dilated. PANCREAS: No evidence of pancreatic mass nor dilatation of the pancreatic duct. SPLEEN: Spleen is not enlarged. No obvious intrasplenic lesions. Splenic and portal veins are patent. ADRENALS: There are no significant adrenal masses. KIDNEYS:No cysts evident. No solid renal masses. There are small densities in both kidneys which may represent nonobstructive calculi. However, as this was a contrast infused study these findings may also just represent some contrast entering the calices. Nevertheless, there no obstructive renal calculi evident. No hydronephrosis nor hydroureter ABDOMINAL AORTA: Abdominal aorta is not enlarged. LYMPH NODES:There is no retroperitoneal nor paraaortic adenopathy. ABDOMINAL WALL: No evidence of significant anterior abdominal wall nor inguinal hernia. GI: There is no evidence of bowel obstruction, free air, nor abscess. PELVIS: GI: No evidence of appendicitis.No evidence of sigmoid diverticulitis. LYMPH NODES: There is no intrapelvic nor inguinal adenopathy. REPRODUCTIVE: Uterus is anteverted and adnexal regions appear age-appropriate. There is a follicular cyst is noted in the left ovary measuring 1.7 x 1.1 cm. There is a smaller follicular cyst in the right ovary measuring 0.9 x 0.8 cm. There is no free fluid in the adnexal region nor in the cul-de-sac. URINARY BLADDER: No calculi nor obvious masses evident. Phleboliths in both sides the pelvis are unchanged from 2018. OSSEOUS: No fractures and no significant osseous lesions. No disc space narrowing. No listhesis nor facet arthropathy IMPRESSION: 1. Small densities in both kidneys either represent calculi or intravenous contrast in the bilateral renal calices. This is difficult to assess accurately as this is a contrast infused study. Nevertheless, there is no hydronephrosis nor hydroureter on either side and there are no radiopaque calculi seen within the urinary bladder. 2. No other significant findings in the abdomen and pelvis. 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 Family History Brother Essential hypertension Spina bifida aperta of lumbosacral spine Mother Fibromyalgia Maternal Grandfather Lupus Pancreatic cancer Social History (Updated 12/05/24 @ 10:17 by Yuli Ashford) Smoking/Tobacco Use Status: Current-Occasional Tobacco Type: cigarettes Tobacco: How many years used: 10 Quit status: considering quitting Second Hand Exposure: Yes Smoking risk assessment performed?: Yes Alcohol Intake: current Alcohol Intake frequency: holidays/special occasions only Drug use: Never Substance use type: does not use Adopted: No Caregiver/Support person: No Household members: children Housing: apartment Number of Children: 2 Communication Needs: None Education Level: high school Do you need help understanding health information?: Never current occupation: [employer] Pets and animals: Yes Pets and animals: cat(s) Sexually active: Yes Do you think of yourself as: decline to answer Current gender identity: female How often do you talk on the phone with friends or family?: three or more times per week How often do you get together with friends or relatives?: three or more times per week How often do you attend anglican or hinduism services?: decline to answer Do you belong to any clubs or organized social groups?: no Panel score (0-1 are the most socially isolated patients): 1 What type of physical activity do you participate in: walking and other Details: gym Frequency: 3-4 times per week Seatbelt use: always Helmet use: Yes Helmet use: always 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 Firearms in home: No Do you feel safe at home: Yes Do you feel safe in your relationship?: Yes Victim of physical abuse: No Victim of emotional abuse: No Victim of sexual abuse: No History History 2 Para Hx # Term Pregnancies 1 Multiple births Hx # Pregnancies Ectopic pregnancies AB induced Hx Number of Living Children AB spontaneous PAWSS Have you Been Recently Intoxicated or Drunk Within the Last 30 days?: No Have you Ever Experienced Previous Episodes of Alcohol Withdrawal?: No Have you ever Experienced Withdrawal Seizures?: No Have you ever Experienced Delirium Tremens(DT)s?: No Have you ever undergone Alcohol Rehabilitation Treatment (i.e, inpt ot outpatient treatment programs)?: No Have you ever Experienced Blackouts?: No Have you ever Combined Alcohol with other Downers within the last 90 days?: No Have you ever Combined Alcohol with any other Substance of Abuse during the last 90 days?: No Positive Blood Alcohol level on Presentation? [PCS.BAL]: No Evidence of Increased Autonomic Activity (i.e. HR>120, tremor, sweating, agitation, nausea)?: No Result: 0
[2025-01-16 17:52] LABS: Abs Immature Grans 0.01 10^3/uL (0.0-0.06); HCT 42.2 % (36.0-46.0); HGB 14.0 g/dL (11.2-15.7); Immature Grans % 0.1 %; MCH 30.4 pg (27.0-33.0); MCHC 33.2 % (32.0-36.0); MCV 92 fL (80-95); MPV 10.5 fL (8.0-11.0); Platelet Count 227 10^3/uL (130-400); RBC 4.61 10^6/uL (3.93-5.22); RDW 12.3 % (11.7-14.6); RDW-SD 41.1 fL; WBC 8.53 10^3/uL (4.4-10.8)
[2025-01-16] MEDS: Ondansetron 4 MG/2 ML VIAL IVP (17:52)
[2025-01-16] MEDS: Ketorolac 15 MG/ML VIAL IVP (17:52)
[2025-01-16] MEDS: Normal Saline Flush 10 ML SYR IVP ×2 (17:53→18:11)
[2025-01-16 18:09] LABS: ALT 20 U/L (14-59); AST 16 U/L (15-37); Albumin 4.1 g/dL (3.4-5.0); Alkaline Phosphatase 105 U/L (46-116); Anion Gap 6.2 mmol/L (3-11); BUN 12 mg/dL (7-18); Bilirubin, Total 0.3 mg/dL (0.2-1.0); CO2 30.8 mmol/L (21.0-32.0); Calcium 8.5 mg/dL (8.5-10.1); Chloride 102 mmol/L (98-107); Estimated GFR 114.88 (mL/min/1.73m2); Glucose 94 mg/dL (74-106); Lipase 41 U/L (<78); Magnesium 2.2 mg/dL (1.8-2.4); Potassium 3.8 mmol/L (3.5-5.1); Sodium 139 mmol/L (136-145); Total Protein 7.6 g/dL (6.4-8.2)
[2025-01-16] MEDS: Normal Saline - Diluent 50 ML VIAL IJ (18:10)
[2025-01-16] MEDS: Omnipaque 350 MG/ML 100 ML BTL IJ (18:12)
--- NOTE | 2025-01-16 18:20 | DI.CT_ITS ---
Exam(s) CT ABDOMEN PELVIS W EXAM: CT ABDOMEN PELVIS W CLINICAL HISTORY: flank pain and suprapubic/lower abd pain. TECHNIQUE: Imaging Protocol: Axial computed tomography images with coronal and sagittal reformatted images were created and reviewed CONTRAST MATERIAL: Intravenous: Omnipaque-350 75cc Oral: Entering the calices. COMPARISON: CT CT renal colic wo from 05/19/2018 FINDINGS: VISUALIZED LUNG BASES: No nodules nor pleural effusions evident. ABDOMEN: There is no ascites. LIVER: There are no focal hepatic lesions evident. No dilated intrahepatic ducts. GALLBLADDER/BILIARY: No obvious gallbladder pathology. CBD is not dilated. PANCREAS: No evidence of pancreatic mass nor dilatation of the pancreatic duct. SPLEEN: Spleen is not enlarged. No obvious intrasplenic lesions. Splenic and portal veins are patent. ADRENALS: There are no significant adrenal masses. KIDNEYS:No cysts evident. No solid renal masses. There are small densities in both kidneys which may represent nonobstructive calculi. However, as this was a contrast infused study these findings may also just represent some contrast entering the calices. Nevertheless, there no obstructive renal calculi evident. No hydronephrosis nor hydroureter ABDOMINAL AORTA: Abdominal aorta is not enlarged. LYMPH NODES:There is no retroperitoneal nor paraaortic adenopathy. ABDOMINAL WALL: No evidence of significant anterior abdominal wall nor inguinal hernia. GI: There is no evidence of bowel obstruction, free air, nor abscess. PELVIS: GI: No evidence of appendicitis.No evidence of sigmoid diverticulitis. LYMPH NODES: There is no intrapelvic nor inguinal adenopathy. REPRODUCTIVE: Uterus is anteverted and adnexal regions appear age-appropriate. There is a follicular cyst is noted in the left ovary measuring 1.7 x 1.1 cm. There is a smaller follicular cyst in the right ovary measuring 0.9 x 0.8 cm. There is no free fluid in the adnexal region nor in the cul-de-sac. URINARY BLADDER: No calculi nor obvious masses evident. Phleboliths in both sides the pelvis are unchanged from 2018. OSSEOUS: No fractures and no significant osseous lesions. No disc space narrowing. No listhesis nor facet arthropathy IMPRESSION: 1. Small densities in both kidneys either represent calculi or intravenous contrast in the bilateral renal calices. This is difficult to assess accurately as this is a contrast infused study. Nevertheless, there is no hydronephrosis nor hydroureter on either side and there are no radiopaque calculi seen within the urinary bladder. 2. No other significant findings in the abdomen and pelvis. Report called by myself to ER provider 01/16/2025 at 7:02 p.m. RADIATION DOSE DELIVERED: 484.01mGy.cm Total DLP DATA REPOSITORY: All CT scans at this facility are submitted to the National Radiology Data Registry (NRDR) Dose Index Registry (DIR) with the [employer] (ACR). RADIATION OPTIMIZATION: All CT scans at this facility use at least one of these dose optimization techniques: automated exposure control; mA and/or kV adjustment per patient size (includes targeted exams where dose is matched to clinical indication); or iterative reconstruction.
[2025-01-16 18:29] LABS: Glucose Negative (Negative)
[2025-01-16 18:37] LABS: RBC 0-2 HPF (0-2)
== END 2025-01-16 19:27 | disposition home or self-care (01) ==
PROVIDERS: Emergency Provider Nurse Practitioner Family; PCP Nurse Practitioner Family
DX: R10.9 Unspecified abdominal pain (principal); R19.7 Diarrhea, unspecified
CPT/HCPCS: 99285; 99284; 36415; 81025; 96374; 96375; 80053; 83690; 74177; 81003; 81015; 83735; 85025; J1885; J2405; J3490

== ENCOUNTER → 2025-04-28 12:13 | Outpatient (CLI) | payer MEDICAID, SELFPAY ==
--- NOTE | 2025-04-28 12:45 | DI.RAD_ITS ---
Exam(s) XR CERVICAL SPINE COMP 4-5V EXAM: XR CERVICAL SPINE COMP 4-5V CLINICAL HISTORY: eval pathology M54.2. TECHNIQUE: 2D digital imaging was performed. COMPARISON: No exams were available for comparison FINDINGS: Five views. No evidence of fracture, listhesis, nor offset of the spinal laminar line. There is no prevertebral soft tissue swelling. Normal disc height at each level and facet joints appear unremarkable. There are no cervical ribs. Bone density normal. No osseous lesions IMPRESSION: No significant radiograph findings on these five views of the cervical spine. DATA REPOSITORY: RADIATION DOSE DELIVERED:
--- NOTE | 2025-04-28 12:52 | DI.RAD_ITS ---
Exam(s) XR THORACIC SPINE COMPLETE EXAM: XR THORACIC SPINE COMPLETE CLINICAL HISTORY: eval pathology M54.6. TECHNIQUE: 2D digital imaging was performed. COMPARISON: No exams were available for comparison FINDINGS: 3 views No evidence of fracture or listhesis nor significant disc space narrowing. There is no significant scoliosis. No abnormal widening of the paraspinal lines. No osseous lesions. No syndesmophytes. IMPRESSION: No significant osseous findings in the thoracic spinal column. DATA REPOSITORY: RADIATION DOSE DELIVERED:
--- NOTE | 2025-04-28 13:45 | DI.VRAD_ITS ---
PROCEDURE INFORMATION: Exam: XR Thoracic Spine Exam date and time: 04/28/2025 1:04 PM Age: 34 years old Clinical indication: Pain in thoracic spine TECHNIQUE: Imaging protocol: Radiologic exam of the thoracic spine. Views: 3 views. COMPARISON: CR XR CERVICAL SPINE COMP 4-5V 04/28/2025 12:57 PM FINDINGS: Bones/joints: Bony mineralization is within normal limits. Alignment is unremarkable. There is no acute fracture in the thoracic spine. Soft tissues: Visualized soft tissues are unremarkable Lungs: Visualized lungs are clear IMPRESSION: No acute findings by plain film exam Dictated and Authenticated by: Melissa Ram MD. Orderin Ramez Tolentino MD
--- NOTE | 2025-04-28 13:47 | DI.VRAD_ITS ---
PROCEDURE INFORMATION: Exam: XR Spine; Cervical Exam date and time: 04/28/2025 12:57 PM Age: 34 years old Clinical indication: Pain: Pain and swelling; Additional info: PT unable to remove piercing TECHNIQUE: Imaging protocol: XR of the spine. Exam focused on the cervical spine. Views: 1 view. COMPARISON: CR XR CHEST 2V PA LATERAL 02/22/2023 8:59 AM FINDINGS: Bones/joints: Bony mineralization is within normal limits. There is straightening of the cervical lordosis likely positional or due to spasm. There is no acute fracture. There is no decrease of vertebral body height. The bony neural foramina appear patent. The C1-C2 articulation is intact. Lungs: Visualized lung apices are clear Soft tissues: Prevertebral soft tissues are unremarkable IMPRESSION: No acute findings by plain film exam Dictated and Authenticated by: Melissa Ram MD. Orderin Ramez Tolentino MD
== END ==
PROVIDERS: PCP Nurse Practitioner Family; Visit Provider Nurse Practitioner Family
DX: M54.2 Cervicalgia (principal); M54.6 Pain in thoracic spine
CPT/HCPCS: 72050; 72072